=== PATIENT | female | born 1950 | race Caucasian/White ===

== ENCOUNTER 2019-08-01 09:59 | Outpatient (CLI) | payer MEDICARE, MEDICAID, SELFPAY ==
--- NOTE | 2019-08-01 11:02 | MM_ITS ---
WS: [id number] DIAGNOSTIC BILATERAL DIGITAL MAMMOGRAM WITH CAD HISTORY: HX OF BREAST CA COMPARISON: 05/28/2018 and 02/26/2015 TECHNIQUE: Bilateral craniocaudad, mediolateral oblique, and mediolateral views are submitted. Comput er aided detection utilized. Breast composition: Postsurgical and posttreatment changes in the RIGHT breast. Significant volume lo ss in the RIGHT breast. There are extensive benign calcifications noted bilaterally. No suspicious ma ss. No clustering or development of pleomorphic calcifications. MM/[place] [id number] IMPRESSION: BI-RADS: 2-Benign FOLLOW UP: 1 Year Follow-up
== END 2019-08-01 10:00 | disposition home or self-care (01) ==
LOC: RADSHAW 10:05
PROVIDERS: Family Provider Internal Medicine; PCP Internal Medicine; Visit Provider Internal Medicine
DX: Z85.3 Personal history of malignant neoplasm of breast (principal)
CPT/HCPCS: 77066

== ENCOUNTER 2019-09-13 11:53 | Inpatient (IN) | payer MEDICARE, MEDICAID, SELFPAY ==
[2019-09-13] VITALS (37 sets, daily range): BP systolic 130–191; BP diastolic 65–129; PULSE 82–135; RESP 13–27; TEMP 36.7–39.4; O2SAT 91–100; BMI 32.3
--- NOTE | 2019-09-13 11:59 | W.ED.ABDPA2 ---
HPI - Abdominal Pain General: Stated Complaint: VOMITING, PAIN Time Seen by Provider: 09/13/19 11:59 Coding Level of Care Code ED Machine Stemmer for Alexi Hernandez
--- NOTE | 2019-09-13 12:10 | W.ED.AMS ---
HPI - Altered Mental Status General: Chief Complaint: Altered Mental Status Stated Complaint: VOMITING, PAIN Time Seen by Provider: 09/13/19 11:59 History of Present Illness: HPI narrative: pts family state the pt has been having problems with confusion since March, It has gotten much worse over the past few days. SHe has had vomiting. fwver of 103. Pt is unable to give answers. She is awake but groaning and nonverbal. Unsure of her baseline. Pt hasnt been taking her meds, unknonwn for how long MD complaint: altered mental status and confusion Onset (ago): month(s) (6) Timing confirmed by: family member Severity: severe Consistency of symptoms: Getting Worse Context: recent fever, diabetes and cancer Review of Systems General: Reports: ROS unobtainable due to mental status Const: Reports: fever, chills and fatigue ENMT: Reports: other (dry mucus membranes) GI: Reports: abdominal pain, nausea and vomiting Skin/Breast: Reports: rash Neuro: Reports: weakness in extremities PFSH ED PFSH: Medical History (Updated 09/13/19 @ 16:23 by Cecile Rosario MD) CAD (coronary artery disease) Chronic diastolic CHF (congestive heart failure) CKD (chronic kidney disease) stage 2, GFR 60-89 ml/min COPD (chronic obstructive pulmonary disease) Diabetes mellitus type 2 in obese HTN (hypertension) Hyperlipidemia Infiltrating ductal carcinoma of right breast s/p chemotherapy and adjuvant hormonal therapy x 4 yrs with Arimidex Surgical History (Updated 09/13/19 @ 16:23 by Cecile Rosario MD) H/O hernia repair H/O: hysterectomy History of breast lump/mass excision R History of cholecystectomy History of coronary artery stent placement History of salpingo-oophorectomy R Hx of tonsillectomy Family History (Updated 09/13/19 @ 16:24 by Cecile Rosario MD) Father Cancer colon cancer CAD (coronary artery disease) Brother CAD (coronary artery disease) Social History Smoking and tobacco status: unknown if ever smoked Physical Exam Const: COMMON NORMALS: well nourished; negative for oriented x3 EXAM LIMITATIONS: altered mental status GENERAL APPEARANCE: in distress (moans and moving all around) NUTRITIONAL APPEARANCE: obese ORIENTATION/CONSCIOUSNESS: Yes awake Neck/C-Spine: COMMON NORMALS: full ROM, no lymphadenopathy, supple and no meningeal signs GENERAL: Yes normal visual inspection CERVICAL SPINE: Yes cervical ROM normal Chest: BREAST/AXILLA PALPATION: Yes other (scar just superiot to nipple) Resp: COMMON NORMALS: normal respiratory effort, no retractions, no use of accessory muscles and clear to auscultation bilaterally AUSCULTATION: clear to auscultation bilaterally Cardio: COMMON NORMALS: regular rhythm and no murmurs; negative for regular rate RATE: abnormal rate and tachycardic RHYTHM: regular rhythm GI: COMMON NORMALS: soft to palpation and non-tender INSPECTION: Yes normal to inspection AUSCULTATION: Yes hyperactive bowel sounds PALPATION: Yes soft and No tender RECTAL EXAM: deferred : COMMON NORMALS: Yes no CVA tenderness BLADDER/KIDNEY EXAM: Yes no CVA tenderness Back/Pelvis: COMMON NORMALS: no CVA tenderness and thoracic and lumbar spine normal to inspection Extremity: COMMON NORMALS: normal to inspection GENERAL: Yes normal exam except as noted Neuro: COMMON NORMALS: negative for oriented x3 MENINGEAL SIGNS: Yes no meningeal signs Skin: COMMON NORMALS: no rashes or lesions noted (petechil rash right upper extrem from elbow down) GENERAL SKIN EXAM: no rashes or lesions noted (petechil rash right upper extrem from elbow down) LESIONS: no lesions Course Vital Signs: Vital signs: Vital Signs Temperature 101 F H 09/13/19 14:07 Pulse Rate 116 H 09/13/19 15:10 Respiratory Rate 20 H 09/13/19 15:10 Blood Pressure 179/89 09/13/19 15:10 Pulse Oximetry 96 09/13/19 15:10 MDM - Altered Mental Status MDM Narrative: Medical decision making narrative: pt is confused and doesnt know why she is here, she was trying to get out of bed during exam, her hr keep jumpin to 150's I will get an ecg now to see what it is and i am testing her for covid as her neutrophills to lymphocytes ratio is massive 1330: pts hr went from 117 to 150's ecg whows sinus tachy possible a flutter, I Will try somoe cardizem, and more tyl as she is febrile and more iv fluids. Pt will need to be admitted for acute sepsis, I am waiting for flu swabs 1405 I was going to give pt zosyn however she is allergic to many things, I have ordered vanc and aztreonam as she is allergic to almost everything, Dr Serrano agreed Lab Data: Attestation: I reviewed the patient's lab results. Labs: Lab Results 09/13/19 09/13/19 09/13/19 Range/Units 12:08 12:25 12:25 WBC 14.3 H (4.0-10.0) 10^3/ uL RBC 4.86 (4.1-5.3) 10^6/u L Hgb 12.8 (11.5-15.3) g/dL Hct 41.8 (37.0-47.0) % MCV 86.0 (81-99) fL MCH 26.3 L (28.0-34.0) pg MCHC 30.6 (30.0-36.0) g/dL RDW 14.6 (12.1-15.1) % Plt Count 433 H (130-400) 10^3/c mm MPV 10.5 H (7.4-10.4) fL Neut % (Auto) 93.5 % Lymph % (Auto) 4.0 % [place] % (Auto) 1.9 % Eos % (Auto) 0.0 % Baso % (Auto) 0.2 % Neut # (Auto) 13.4 H (1.8-7.7) 10^3/u L Lymph # (Auto) 0.6 L (0.8-4.8) 10^3/u L [place] # (Auto) 0.3 (0.2-0.9) 10^3/u L Eos # (Auto) 0.0 (0.0-0.8) 10^3/u L Baso # (Auto) 0.0 (0.0-0.1) 10^3/u L Nucleated RBC % (a uto) 0 % Nucleated RBCs # 0.0 /100WBC Sodium 139 (136-145) mmol/L Potassium 3.6 (3.5-5.1) mmol/L Chloride 96 L (98-107) mmol/L Carbon Dioxide 21 L (22-29) mmol/L Anion Gap 25.6 H (5-19) BUN 10 (8-23) mg/dL Creatinine 1.0 H (0.5-0.9) mg/dL GFR Calculation 55.0 L (90-130) mL/min Glucose 362 H (65-115) mg/dL POC Glucose 313 (70-110) mg/dL Calculated Osmolal ity 299 H (285-295) mOsm/k g Lactate (0.5-2.2) mmol/L Calcium 9.8 (8.5-10.5) mg/dL Total Bilirubin 0.5 (0.15-1.2) mg/dL AST 32 (0-32) U/L ALT 30 (0-33) U/L Alkaline Phosphata se 132 H (35-105) IU/L Troponin T Baselin e (0-10) ng/mL Total Protein 7.3 (6.6-8.7) g/dL Albumin 4.4 (3.5-5.2) g/dL Globulin 2.9 (1.3-4.6) g/dL Urine Color (Yellow) Urine Appearance (CLEAR) Urine pH (5-7) Ur Specific Gravit y (1.005-1.030) Urine Protein (Negative) Urine Glucose (UA) (Normal) Urine Ketones (Negative) Urine Blood (Negative) Urine Nitrate (Negative) Urine Bilirubin (NEGATIVE) Urine Urobilinogen (Negative) mg/dL Ur Leukocyte Cassie ase (Negative) Urine RBC (0-2) /hpf Urine WBC (0-5) /hpf Ur Squamous Epith Cells (0-5) Urine Bacteria (NONE) Influenza Type A A g (Negative) Influenza Type B A g (Negative) 09/13/19 09/13/19 09/13/19 Range/Units 12:39 13:24 13:43 WBC (4.0-10.0) 10^3/ uL RBC (4.1-5.3) 10^6/u L Hgb (11.5-15.3) g/dL Hct (37.0-47.0) % MCV (81-99) fL MCH (28.0-34.0) pg MCHC (30.0-36.0) g/dL RDW (12.1-15.1) % Plt Count (130-400) 10^3/c mm MPV (7.4-10.4) fL Neut % (Auto) % Lymph % (Auto) % [place] % (Auto) % Eos % (Auto) % Baso % (Auto) % Neut # (Auto) (1.8-7.7) 10^3/u L Lymph # (Auto) (0.8-4.8) 10^3/u L [place] # (Auto) (0.2-0.9) 10^3/u L Eos # (Auto) (0.0-0.8) 10^3/u L Baso # (Auto) (0.0-0.1) 10^3/u L Nucleated RBC % (a uto) % Nucleated RBCs # /100WBC Sodium (136-145) mmol/L Potassium (3.5-5.1) mmol/L Chloride (98-107) mmol/L Carbon Dioxide (22-29) mmol/L Anion Gap (5-19) BUN (8-23) mg/dL Creatinine (0.5-0.9) mg/dL GFR Calculation (90-130) mL/min Glucose (65-115) mg/dL POC Glucose (70-110) mg/dL Calculated Osmolal ity (285-295) mOsm/k g Lactate 3.5 H (0.5-2.2) mmol/L Calcium (8.5-10.5) mg/dL Total Bilirubin (0.15-1.2) mg/dL AST (0-32) U/L ALT (0-33) U/L Alkaline Phosphata se (35-105) IU/L Troponin T Baselin e 16 H (0-10) ng/mL Total Protein (6.6-8.7) g/dL Albumin (3.5-5.2) g/dL Globulin (1.3-4.6) g/dL Urine Color (Yellow) Urine Appearance (CLEAR) Urine pH (5-7) Ur Specific Gravit y (1.005-1.030) Urine Protein (Negative) Urine Glucose (UA) (Normal) Urine Ketones (Negative) Urine Blood (Negative) Urine Nitrate (Negative) Urine Bilirubin (NEGATIVE) Urine Urobilinogen (Negative) mg/dL Ur Leukocyte Cassie ase (Negative) Urine RBC (0-2) /hpf Urine WBC (0-5) /hpf Ur Squamous Epith Cells (0-5) Urine Bacteria (NONE) Influenza Type A A g Negative (Negative) Influenza Type B A g Negative (Negative) 09/13/19 Range/Units 13:43 WBC (4.0-10.0) 10^3/ uL RBC (4.1-5.3) 10^6/u L Hgb (11.5-15.3) g/dL Hct (37.0-47.0) % MCV (81-99) fL MCH (28.0-34.0) pg MCHC (30.0-36.0) g/dL RDW (12.1-15.1) % Plt Count (130-400) 10^3/c mm MPV (7.4-10.4) fL Neut % (Auto) % Lymph % (Auto) % [place] % (Auto) % Eos % (Auto) % Baso % (Auto) % Neut # (Auto) (1.8-7.7) 10^3/u L Lymph # (Auto) (0.8-4.8) 10^3/u L [place] # (Auto) (0.2-0.9) 10^3/u L Eos # (Auto) (0.0-0.8) 10^3/u L Baso # (Auto) (0.0-0.1) 10^3/u L Nucleated RBC % (a uto) % Nucleated RBCs # /100WBC Sodium (136-145) mmol/L Potassium (3.5-5.1) mmol/L Chloride (98-107) mmol/L Carbon Dioxide (22-29) mmol/L Anion Gap (5-19) BUN (8-23) mg/dL Creatinine (0.5-0.9) mg/dL GFR Calculation (90-130) mL/min Glucose (65-115) mg/dL POC Glucose (70-110) mg/dL Calculated Osmolal ity (285-295) mOsm/k g Lactate (0.5-2.2) mmol/L Calcium (8.5-10.5) mg/dL Total Bilirubin (0.15-1.2) mg/dL AST (0-32) U/L ALT (0-33) U/L Alkaline Phosphata se (35-105) IU/L Troponin T Baselin e (0-10) ng/mL Total Protein (6.6-8.7) g/dL Albumin (3.5-5.2) g/dL Globulin (1.3-4.6) g/dL Urine Color Yellow (Yellow) Urine Appearance Clear (CLEAR) Urine pH 6.5 (5-7) Ur Specific Gravit y 1.015 (1.005-1.030) Urine Protein 2+ H (Negative) Urine Glucose (UA) 4+ H (Normal) Urine Ketones 1+ H (Negative) Urine Blood 2+ H (Negative) Urine Nitrate Negative (Negative) Urine Bilirubin Neg (NEGATIVE) Urine Urobilinogen Norm (Negative) mg/dL Ur Leukocyte Cassie ase Negative (Negative) Urine RBC 5-10 H (0-2) /hpf Urine WBC 0-4 H (0-5) /hpf Ur Squamous Epith Cells 0-4 H (0-5) Urine Bacteria 1+ H (NONE) Influenza Type A A g (Negative) Influenza Type B A g (Negative) Imaging Data^: CXR: Radiologist's impression: Signed Patient: Araceli Duke #: [id number] : 1950cct#:[id number] Age/Sex: 69 / FADM Date: 09/13/19 Loc: ERRoom/Bed: Attending Dr: Ordering Provider/Ordering MD: Celeste Dixon DO Date of Service: 09/13/19 Procedure(s): XR chest 1V portable [id number] Accession Number(s): [id number] Report Number: [id number] WS: [id number] PORTABLE CHEST HISTORY: pneumonia COMPARISON: 11/07/2016 Scattered granulomata. No pneumonia. No pleural effusion. No pleural effusion or pneumothorax. Cardiac size: Normal. Mediastinum/Aorta: Normal mediastinum. Prior anterior cervical fusion. Degenerative changes at the glenohumeral joints and AC joints. XR/XR chest 1V portable [id number] IMPRESSION: Prior granulomatous disease. No pneumonia. CT Head: Radiologist's impression: CT Scan Report Signed Patient: Araceli Duke #: [id number] : 1950cct#:[id number] Age/Sex: 69 / FADM Date: 09/13/19 Loc: ICURoom/Bed: [place] [address]: Cecile Rosario MD Ordering Provider/Ordering MD: Celeste Dixon DO Date of Service: 09/13/19 Procedure(s): CT head wo con* [id number] Accession Number(s): [id number] Report Number: [id number] WS: [id number] CT HEAD NONCONTRAST HISTORY: mental status change TECHNIQUE: Contiguous axial imaging performed through the brain in 2.5 mm imaging. Bone and soft tissue windows. Sagittal and coronal reformats reviewed. All CT scans at [facility] use at least one of these dose optimization techniques: automated exposure control; mA and/or kV adjustment per patient size (includes targeted exams where dose is matched to clinical indication); or iterative reconstruction. DLP: 456.77 mGy.cm COMPARISON: 11/07/2016 No acute intracranial hemorrhage, midline shift or mass effect. Mild atrophy. Significant progression of decreased attenuation throughout the white matter since the prior study. There is no loss of the lawson-white matter differentiation. Large amount of artifact in the posterior fossa. Ventricles: Normal size with no hydrocephalus. No inferior displacement of cerebellar tonsils. Paranasal sinuses: Near complete opacification of the RIGHT sphenoid sinus. Mastoid air cells: Well pneumatized. Calvarium and scalp: Hyperostosis frontalis interna. Limited evaluation secondary to motion. CT/CT head wo con* [id number] IMPRESSION: 1. Study is limited by motion. 2. No acute intracranial hemorrhage. 3. Significant progression of white matter disease since 11/07/2016. May be related to ischemia or hypertension. EKG Data^: EKG 1: Attestation: I personally reviewed and interpreted this EKG as follows: EKG interpretation date: 09/13/19 EKG interpretation time: 12:39 Computer generated interpretation: sinus tachy rate 117, LAD, LVH nonspec st changes EKG 2: Attestation: I personally reviewed and interpreted this EKG as follows: EKG interpretation date: 09/13/19 EKG interpretation time: 13:31 Prior EKG tracings: available for review Interpretation: sinus tach possible a flutter with rate 150, ant septal q waves, LAD, nonspec st changes Discharge Plan Discharge Patient Disposition: Admitted As Inpatient Admit Provider: Cecile Rosario Clinical Impression: Atrial tachycardia Altered mental status Qualifiers: Altered mental status type: disorientation Qualified Code(s): R41.0 - Disorientation, unspecified Sepsis Qualifiers: Sepsis type: sepsis due to unspecified organism Sepsis acute organ dysfunction status: with acute organ dysfunction Severe sepsis acute organ dysfunction type: encephalopathy Severe sepsis shock status: without septic shock Qualified Code(s): A41.9 - Sepsis, unspecified organism Condition: Stable Referrals: Jake Kilpatrick DO [Primary Care Provider] - Coding Level of Care Code ED Integrative Medicine Physician for Chg Fwd Exam Comprehensive
[2019-09-13 12:12] LABS: Glucose Point of Care 313 mg/dL (70-110)
--- NOTE | 2019-09-13 12:18 | CT_ITS ---
WS: [id number] CT HEAD NONCONTRAST HISTORY: mental status change TECHNIQUE: Contiguous axial imaging performed through the brain in 2.5 mm imaging. Bone and soft tiss ue windows. Sagittal and coronal reformats reviewed. All CT scans at [facility] use at ast one of these dose optimization techniques: automated exposure control; mA and/or kV adjustment pe r patient size (includes targeted exams where dose is matched to clinical indication); or iterative r econstruction. DLP: 456.77 mGy.cm COMPARISON: 11/07/2016 No acute intracranial hemorrhage, midline shift or mass effect. Mild atrophy. Significant progression of decreased attenuation throughout the white matter since the prior study. There is no loss of the lawson-white matter differentiation. Large amount of artifact in t he posterior fossa. Ventricles: Normal size with no hydrocephalus. No inferior displacement of cerebellar tonsils. Paranasal sinuses: Near complete opacification of the RIGHT sphenoid sinus. Mastoid air cells: Well pneumatized. Calvarium and scalp: Hyperostosis frontalis interna. Limited evaluation secondary to motion. CT/CT head wo con* [id number] IMPRESSION: 1. Study is limited by motion. 2. No acute intracranial hemorrhage. 3. Significant progression of white matter disease since 11/07/2016. May be rela jovan to ischemia or hypertension.
--- NOTE | 2019-09-13 12:18 | CT_ITS ---
WS: [id number] CT ABDOMEN AND PELVIS WITH CONTRAST HISTORY: Abdominal pain with fever. Altered mental status. TECHNIQUE: Imaging performed of the abdomen and pelvis with IV contrast. Single phase imaging of the abdomen. Coronal and sagittal reformats are submitted. All CT scans at [facility] use at least one of these dose optimization techniques: automated exposure control; mA and/or kV adjustment per patient size (includes targeted exams where dose is matched to clinical indication); or iterativ e reconstruction. IV CONTRAST: Visipaque 320; 95 mL IV. Oral contrast: No DLP: 1464.82 mGy.cm COMPARISON: None available. Lower thorax: Benign granulomata at the lung bases. No pneumonia. Heart is normal size. Small hiatal hernia. Liver/biliary system: Mild hepatic steatosis. No bile duct dilatation or mass. Gallbladder: Gallbladder is not identified. Pancreas: Normal. Spleen: Numerous granulomata. Normal size. Adrenal glands: Normal. Right kidney: Moderate perinephric stranding. Cortical cyst in the mid kidney. The largest measures 1 .7 cm. No obstruction. There are nonobstructing calcifications in the renal pelvis. Left kidney: Mild perinephric stranding. Focal area of cortical thinning in the posterior upper pole. There a few scattered hypodensities which are too small to characterize. Additional nonobstructing c alcifications. No hydronephrosis. Aorta: Moderate atherosclerosis with no aneurysm. Lymphadenopathy: None. Free fluid: None. GI tract: The appendix may be. The appendix is not definitely identified. There is mucosal edema in t he RIGHT colon through the transverse colon. Mild shagginess and irregular appearance of the colon. S imilar appearance the descending colon. Towards the sigmoid there is mild wall thickening. There is s cattered diverticula. There is ill-defined fluid collection measuring 2.2 x 1.6 cm inseparable from t he lateral sigmoid colon. There are several adjacent diverticula with mild wall thickening. No free a ir. Abdominal wall: Unremarkable abdominal wall. No hernia. Pelvis: Urinary bladder is nondistended due to Bustillos catheter. Bones: Sclerotic lytic changes and T10 and T11. Probably due to hemangiomas. No destructive process. The cor den of the vertebral bodies remains intact. CT/CT abdomen pelvis w con* [id number] IMPRESSION: 1. Mild mucosal edema and thickening of the colon. Favor mild colitis. There i s a small fluid collection inseparable from the sigmoid colon measuring 2.2 x 1 .6 cm. This is either a small ovarian remnant or small diverticular abscess. No t a lot of adjacent inflammation and there is no enhancement of the wall. Favor this may be part of an atrophic ovary. I doubt this would be accessible for ev aluation by ultrasound. Follow-up CT evaluation may be the most helpful evaluat ion. 2. Diverticulosis without focal diverticulitis. 3. Urinary bladder is nondistended and contains a Bustillos catheter. 4. Mild perinephric stranding around each kidney. Correlate for possible urina ry tract infection. 5. Small hiatal hernia. 6. Gallbladder is not identified. Uterus is not identified either.
--- NOTE | 2019-09-13 12:18 | XR_ITS ---
WS: [id number] PORTABLE CHEST HISTORY: pneumonia COMPARISON: 11/07/2016 Scattered granulomata. No pneumonia. No pleural effusion. No pleural effusion or pneumothorax. Cardiac size: Normal. Mediastinum/Aorta: Normal mediastinum. Prior anterior cervical fusion. Degenerative changes at the glenohumeral joints and AC joints. XR/XR chest 1V portable [id number] IMPRESSION: Prior granulomatous disease. No pneumonia.
--- NOTE | 2019-09-13 12:19 | ECG_ITS ---
Measurements Intervals [place] Rate: 117 P: 41 [place]: 171 QRS: -58 QRSD: 118 T: 64 QT: 342 QTc: 478 SINUS TACHYCARDIA LEFT AXIS DEVIATION [QRS AXIS < -30] LEFT VENTRICULAR HYPERTROPHY AND ST-T CHANGE ANTEROSEPTAL MYOCARDIAL INFARCTION [40+ ms Q WAVE IN V1-V4], OF INDETERMINATE AGE Compared to ECG 11/07/2016 17:57:55 Left ventricular hypertrophy now present ST (T wave) deviation now present Myocardial infarct finding no longer present Electronically Signed On 09-13-2019 19:20:23 CDT by Beverley Lopez M.D. [id number] gagnon
[2019-09-13 12:57] LABS: Basophils % 0.2 %; Hematocrit 41.8 % (37.0-47.0); Hemoglobin 12.8 g/dL (11.5-15.3); Lymphocytes # 0.6 10^3/uL (0.8-4.8); Mean Corpuscular HGB Conc 30.6 g/dL (30.0-36.0); Mean Corpuscular Hemoglobin 26.3 pg (28.0-34.0); Mean Platelet Volume 10.5 fL (7.4-10.4); Monocytes # 0.3 10^3/uL (0.2-0.9); Monocytes % 1.9 %; Neutrophils # 13.4 10^3/uL (1.8-7.7); Neutrophils % 93.5 %; Nucleated Red Blood Cells % 0 %; Platelet Count 433 10^3/cmm (130-400); Red Blood Count 4.86 10^6/uL (4.1-5.3); Red Cell Distribution Width 14.6 % (12.1-15.1); White Blood Count 14.3 10^3/uL (4.0-10.0)
[2019-09-13] MEDS: sodium chloride 0.9% 1,000 ML 999 ML IV (13:00)
[2019-09-13 13:16] LABS: Lactate (Lactic Acid level) 3.5 mmol/L (0.5-2.2)
[2019-09-13 13:22] LABS: Alanine Aminotransferase 30 U/L (0-33); Albumin Level 4.4 g/dL (3.5-5.2); Alkaline Phosphatase 132 IU/L (35-105); Anion Gap 25.6 (5-19); Blood Urea Nitrogen 10 mg/dL (8-23); Calcium 9.8 mg/dL (8.5-10.5); Carbon Dioxide 21 mmol/L (22-29); Chloride 96 mmol/L (98-107); Globulin 2.9 g/dL (1.3-4.6); Glucose 362 mg/dL (65-115); Osmolality Calculated 299 mOsm/kg (285-295); Potassium 3.6 mmol/L (3.5-5.1); Sodium 139 mmol/L (136-145); Total Bilirubin 0.5 mg/dL (0.15-1.2); Total Protein 7.3 g/dL (6.6-8.7)
[2019-09-13 13:38] LABS: Aspartate Amino Transferase 32 U/L (0-32)
[2019-09-13 13:47] LABS: Troponin(5th) Baseline 16 ng/mL (0-10)
[2019-09-13] MEDS: acetaminophen 650 mg Supp PR ×2 (14:00→20:25)
[2019-09-13 14:12] LABS: Add Urine Microscopic? YES; Bilirubin Urine Neg (NEGATIVE); Blood Urine 2+ (Negative); Glucose Urine UA 4+ (Normal); Ketones Urine 1+ (Negative); Leukocyte Esterase Urine Negative (Negative); Nitrate Urine Negative (Negative); Protein Urine 2+ (Negative); Specific Gravity, Urine 1.015 (1.005-1.030); Urine Appearance Clear (CLEAR); Urine Color Yellow (Yellow); Urobilinogen Urine Norm (Negative); pH Urine 6.5 (5-7)
[2019-09-13 14:16] LABS: Add Urine Culture? Yes; Bacteria Urine 1+; Squamous Epithelial Cell Urine 0-4 (0-5); WBC Urine 0-4 /hpf (0-5)
--- NOTE | 2019-09-13 14:19 | ECG_ITS ---
Measurements Intervals [place] Rate: 150 P: 240 [place]: 101 QRS: -57 QRSD: 118 T: 35 QT: 296 QTc: 468 SINUS TACHYCARDIA WITH SHORT [place] INTERVAL, POSSIBLE ATRIAL FLUTTER LEFT AXIS DEVIATION [QRS AXIS < -30] PATTERN CONSISTENT WITH PULMONARY DISEASE Compared to ECG 11/07/2016 17:57:55 No significant changes Electronically Signed On 09-14-2019 19:08:12 CDT by Lory Taylor M.D. [email or web address] f
[2019-09-13 14:28] LABS: Influenza A by IFA Negative (Negative)
[2019-09-13 14:29] LABS: Influenza B by IFA Negative (Negative)
[2019-09-13] MEDS: aztreonam 2,000 MG in sodium chloride 0.9% (plus) 100 ML 200 MG IV ×2 (14:45→23:10)
--- NOTE | 2019-09-13 14:50 | PC.NURSE ---
This Rn at bedside with this pt throughout stay so far. Pt continues to be restless and is unable to sit still. Constantly attempting to get out of bed. Lines have been changed as pt urinated and saturated linens. Will continue to monitor closely.
[2019-09-13 15:39] LABS: Troponin 5 2HR 20.49 ng/mL (0-10); Troponin 5 2HR Delta 4.49 ABS# (0-10)
[2019-09-13] MEDS: vancomycin 1,000 MG in sodium chloride 0.9% 250 ML 250 MG IV (15:39)
--- NOTE | 2019-09-13 15:43 | PM.HP ---
Providers/Chief Complaint Admitting Physician: Cecile Rosario MD Primary Care Provider: Jake Kilpatrick DO Chief Complaint: Increased confusion, poor intake History of Present Illness Araceli Duke is a 69 year old female with PMHx of Right breast infiltrating ductal carcinoma status post chemotherapy and adjuvant hormonal therapy (has chronic R lymphedema), HTN, Hyperlipidemia, CAD s/p LAD stenting, COPD, CKD stage II, NIDDM type II; presents from home via ambulance for evaluation of ongoing and progressive altered mental status as well as most recently abdominal discomfort, nausea/vomiting, diarrhea and poor oral intake. Patient is encountered in the ER, is alert but quite disoriented and unable to provide any history. Collateral information obtained from thorough review of medical record as well as a verbal conversation with patient's and daughter over the phone. It seems that sometime in March 2019, patient whom had began to display some issues with forgetfulness and memory loss, seemed to progressively get worse with some days acting normal than others where she would be completely unaware of what is going on with periods of agitation, increased forgetfulness, agitation and generally incapable of taking care of herself. Daughter and alternate providing 24/7 supervision at home. Patient is able to ambulate independently within the home but has gradually lost interest in and out of home activity, had progressively poor oral intake had increasing episodes of urinary and bowel incontinence. She has complained of sciatic nerve pain to her family and as of yesterday was started on [place] by Dr. Kilpatrick of which she has taken 2 doses. Family states that she last took her medications yesterday the patient is quite forgetful and does not seem to consistently take her medications as she should. She is a former smoker, quit 30 years ago, family denies any alcohol or illicit drug use. She follows up with Dr. Garner as her primary adobe maker. Family contacted [facility] [place] to get patient transitioned to fpc earlier today as they are struggling to provide adequate care for her at home. They were advised to have patient be evaluated in the ER given her symptoms and consider placement after that. Patient moans intermittently and responds to painful stimulation including inflation of blood pressure cuff is otherwise unable to follow commands. She was febrile with a T-max of 103F and has received a total of 1000 mg of Tylenol GA with most recent temperature being 101 F. She is quite hypertensive with systolic blood pressure up in the 1 80-1 90 range, tachycardic with intermittent spikes in her heart rate to 1 70-1 80 though she does not sustain this for longer than a few seconds at a time. She is currently on room air and saturating at 96%. She has received a dose of Cardizem with EKG showing sinus tachycardia versus possible a flutter. She has a leukocytosis with a white count of 14.3 with neutrophilic predominance, slight elevation in platelet count at 433, elevated anion gap at 25.6, creatinine of 1.0, glucose of 362, lactate of 3.5, troponins with no significant delta over 2 hours, UA showing ketonuria, proteinuria and bacteria, influenza negative. Chest x-ray is unremarkable. CT head is also unremarkable for any acute findings. CT scan of the abdomen and pelvis shows findings consistent with mild colitis, mild bilateral perinephric stranding and diverticulosis. She has received a dose of vancomycin and aztreonam per my request, aztreonam was chosen given patient's allergy profile. COVID-19 testing has also been sent. Patient will be admitted to ICU given sepsis, significant altered mental status, and low threshold for decompensation. I had an extensive discussion with patient's and daughter including current restricted visiting policy and availability of contacting nursing staff over the phone for updates as needed. Confirmed that family would like to continue to pursue fpc placement with preference for [facility] care. Patient is been admitted for further IV antibiotics, IV fluid hydration. Review of Systems General: Reports: ROS unobtainable due to mental status Medications/Allergies Home Medications Medication Instructions Recorded Confirmed Last Taken Type amlodipine 2.5 mg PO DAILY 09/13/19 09/13/19 Unknown History atenolol 50 mg PO DAILY 09/13/19 09/13/19 Unknown History citalopram 40 mg PO DAILY 09/13/19 09/13/19 Unknown History clopidogrel 75 mg PO DAILY 09/13/19 09/13/19 Unknown History hydrocodone-acetaminophen 1 tab PO TID PRN 09/13/19 09/13/19 Unknown History metformin 1,000 mg PO BID 09/13/19 09/13/19 Unknown History ranitidine HCl 300 mg PO BID 09/13/19 09/13/19 Unknown History tizanidine 4 mg PO TID PRN 09/13/19 09/13/19 Unknown History Allergies Allergy/AdvReac Type Severity Reaction Status Date / Time acetanilide Allergy ALGY-Hives Verified 09/13/19 12:19 amoxicillin Allergy ALGY-Hives Verified 09/13/19 12:19 ciprofloxacin Allergy ALGY-Hives Verified 09/13/19 12:19 codeine Allergy ALGY-Hives Verified 09/13/19 12:19 doxycycline Allergy ALGY-Hives Verified 09/13/19 12:19 Penicillins Allergy ALGY-Hives Verified 09/13/19 12:19 propoxyphene Allergy ALGY-Hives Verified 09/13/19 12:19 Sulfa (Sulfonamide Allergy ALGY-Hives Verified 09/13/19 12:19 Antibiotics) tetracycline Allergy ALGY-Hives Verified 09/13/19 12:19 PFSH Acute PFSH: Medical History (Updated 09/13/19 @ 18:22 by Cecile Rosario MD) CAD (coronary artery disease) Chronic diastolic CHF (congestive heart failure) CKD (chronic kidney disease) stage 2, GFR 60-89 ml/min COPD (chronic obstructive pulmonary disease) Diabetes mellitus type 2 in obese HTN (hypertension) Hyperlipidemia Infiltrating ductal carcinoma of right breast s/p chemotherapy and adjuvant hormonal therapy x 4 yrs with Arimidex Surgical History (Updated 09/13/19 @ 16:23 by Cecile Rosario MD) H/O hernia repair H/O: hysterectomy History of breast lump/mass excision R History of cholecystectomy History of coronary artery stent placement History of salpingo-oophorectomy R Hx of tonsillectomy Family History (Updated 09/13/19 @ 16:24 by Cecile Rosario MD) Father Cancer colon cancer CAD (coronary artery disease) Brother CAD (coronary artery disease) Social History (Updated 09/13/19 @ 16:43 by Cecile Rosario MD) Smoking and tobacco status: former smoker Quit status (tobacco): has quit using tobacco Year quit tobacco: 30 yrs ago Alcohol intake: never Substance/Drug Use: never Household members: spouse and children Marital status: Vitals/I&O/Wt Last Vital Signs Temp 101 F H 09/13/19 14:07 Pulse 116 H 09/13/19 15:10 Resp 20 H 09/13/19 15:10 BP 179/89 09/13/19 15:10 Pulse Ox 96 09/13/19 15:10 09/13/19 09/13/19 09/13/19 06:59 14:59 22:59 Intake Total 100 / 100 Balance 100 / 100 Weight last 48 hrs Weight 72.575 kg Physical Exam Const: COMMON NORMALS: no apparent distress NUTRITIONAL APPEARANCE: obese morbidly obese ORIENTATION/CONSCIOUSNESS: Yes awake and Yes confused HENMT: COMMON NORMALS: normocephalic and head/scalp atraumatic HEAD & SCALP: normocephalic and atraumatic MOUTH: moist mucous membranes abnormal Details: parched Eye: COMMON NORMALS: PERRL, EOMs intact bilaterally and conjunctivae normal CONJUNCTIVA: Yes conjunctivae normal PUPIL: Yes PERRL Neck/C-Spine: COMMON NORMALS: full ROM GENERAL: Yes normal visual inspection and Yes trachea midline Chest: COMMONS NORMALS: inspection of chest normal Resp: COMMON NORMALS: normal respiratory effort, no retractions, no use of accessory muscles and clear to auscultation bilaterally EFFORT & INSPECTION: Yes able to speak in complete sentences, Yes symmetric chest movement and Yes tachypneic AUSCULTATION: clear to auscultation bilaterally Cardio: COMMON NORMALS: S1 normal heart sound, S2 normal heart sound and no murmurs RATE: tachycardic RHYTHM: abnormal rhythm HEART SOUNDS: S1 normal and S2 normal GI: COMMON NORMALS: normal to inspection, nondistended, normoactive bowel sounds and soft to palpation INSPECTION: Yes central obesity PALPATION: Yes soft OTHER: -unable to gauge tenderness but no apparent discomfort on palpation Extremity: COMMON NORMALS: normal to inspection, full ROM, no clubbing, cyanosis or edema and no pedal edema Neuro: COMMON NORMALS: moves all extremities SENSORIUM/ORIENTATION: Yes alert, Yes orientation impaired (moans in response to painful stimulation) and Yes other (unable to follow commands) Psych: ATTENTION/CONCENTRATION: Yes attention grossly impaired and Yes concentration grossly impaired Skin: COMMON NORMALS: no rashes or lesions noted, no jaundice, no petechiae and no mottling GENERAL SKIN EXAM: no rashes or lesions noted Urinary Catheter Management^: [place]: Cath Placed During This Visit: yes Urethral Indwelling: Yes Reason for Continuing Indwelling Catheter: Accurate Measurement of Urinary Output in Critically Ill Patients Urinary Catheter Date of Insertion: 09/13/19 Data : 09/13/19 12:25 09/13/19 12:25 Micro: Microbiology 09/13/19 13:24 Blood Culture - Preliminary Blood SPECIMEN COLLECTED 09/13/19 12:39 Blood Culture - Preliminary Blood SPECIMEN COLLECTED A&P Assessment and plan (1) Altered mental status: -Presented with altered mental status, collateral information obtained from family and thorough review of medical record. Given gradual onset of memory loss, forgetfulness, waxing and waning quality, suspect underlying dementia that has worsened in light of possible infection -Associated sepsis as evidenced by leukocytosis, tachycardia, fever, lactic acidosis -UA positive for bacteria, ketones, protein -Chest x-ray unremarkable -CT abdomen and pelvis reviewed with reported diverticulosis without diverticulitis, mild colitis, mild perinephric stranding around each kidney -CT head negative -Clinically appears dehydrated (ketonuria, lactic acidosis, increased anion gap); IV fluid hydration -f/u blood and urine cx -received dose of Vancomycin and Aztreonam; continue Aztreonam (due to noted allergy profile) and add Flagyl for appropriate anaerobic coverage given evidence of colitis -lactic acidosis-3.5, suspect infection as well as element of dehydration -order stool studies including C.difficile though has not been on recent abx -ammonia-17 -check TSH, vitamin B12, folate -B[place]illos catheter placement for accurate Is & Os -NPO for now -noted hyperglycemia; will check A1c in AM -hypoglycemia precautions particularly as NPO -fall precautions -PT/OT evaluations once able to follow commands -ST evaluation for cognitive testing -will need 1:1 monitoring given high fall risk, likelihood of pulling at IVs, [place] catheter -Ativan PRN if increased agitation Status: Acute Qualifiers: Altered mental status type: disorientation Qualified Code(s): R41.0 - Disorientation, unspecified (2) Sepsis: -as noted above Status: Acute Qualifiers: Sepsis acute organ dysfunction status: with acute organ dysfunction Sepsis type: sepsis due to unspecified organism Severe sepsis acute organ dysfunction type: encephalopathy Severe sepsis shock status: without septic shock Qualified Code(s): A41.9 - Sepsis, unspecified organism; R65.20 - Severe sepsis without septic shock; G93.40 - Encephalopathy, unspecified (3) HTN (hypertension): -has known hx of HTN, presented with hypertensive urgency -per family has not taken meds since yesterday, per med list is on Atenolol 50 mg and Amlodipine 2.5 mg -hydralazine PRN for now until can take PO meds -close monitoring of vital signs -troponins noted with no significant delta Status: Chronic Qualifiers: Hypertension type: essential hypertension Qualified Code(s): I10 - Essential (primary) hypertension (4) Chronic diastolic CHF (congestive heart failure): -has known hx of chronic diastolic CHF, no acute exacerbation currently -Echo (2017): EF=60%, G1DD;repeat ordered given hypertensive urgency and need to reassess EF Status: Acute (5) CKD (chronic kidney disease) stage 2, GFR 60-89 ml/min: -has BRENT on CKD stage 2, baseline Cr wnl -likely secondary to dehydration given poor oral intake, diarrhea, N/V -continue to monitor renal function, avoid nephrotoxins -IVF hydration -noted evidence of bilateral perinephric stranding on imaging -has [place] catheter; monitor urine output Status: Chronic (6) COPD (chronic obstructive pulmonary disease): -has documented hx of COPD, prior smoker, not oxygen dependent -no evidence of acute exacerbation currently -supplemental oxygen as needed -monitor respiratory status Status: Chronic Qualifiers: COPD type: unspecified COPD Qualified Code(s): J44.9 - Chronic obstructive pulmonary disease, unspecified (7) Diabetes mellitus type 2 in obese: -has hx of NIDDM type II -hypoglycemia precautions, accuchecks, ISS -check A1c in AM -noted urine ketones, significant hyperglycemia, increased anion gap though I suspect dehydration to be more of an element here than DKA -when PO appropriate, consistent carb diet Status: Chronic (8) CAD (coronary artery disease): -has prior hx of CAD with stenting of LAD done in 03/2007 -had previously followed up with cardiology Status: Chronic Qualifiers: Coronary Disease-Associated Artery/Lesion type: [place] artery [place] vs. transplanted heart: [place] heart Associated angina: angina presence unspecified Qualified Code(s): I25.10 - Atherosclerotic heart disease of [place] coronary artery without angina pectoris (9) Hyperlipidemia: -lipid panel in AM Status: Chronic Qualifiers: Hyperlipidemia type: unspecified Qualified Code(s): E78.5 - Hyperlipidemia, unspecified Additional A&P Information -Chronic back pain, sciatica; had just been started on [place] -Obesity: BMI-32 kg/m2 -hx of R breast infiltrating ductal carcinoma s/p chemo and adjuvant hormonal therapy (Arimidex) -Tachycardia, ECGs noted; telemetry monitoring, BB PRN -GI ppx with famotidine -DVT ppx with heparin -Dispo: needs NH placement -Code status: FULL code per discussion with family -ICU admission given sepsis, significant altered mental status, low threshold for decompensation Attestations Medical Necessity Statement*: Araceli Duke's hospital stay will require greater than 2 midnights for management of altered mental status, dehydration, colitis, UTI, including IVF hydration, broad spectrum IV antibiotics. Time Spent in Patient Care: Greater than 35 minutes (>than 50% of time spent in counselling and/or direct pt care on unit). Critical Care Time: The high probability of a clinically significant, sudden or life threatening deterioration of the patient's [hemodynamic] system(s) required my full and direct attention, intervention and personal management. The critical care time is as shown. This time is in addition to time spent performing any reported procedures but includes the following: [x] Data and vital sign review and interpretation [x] Patient assessment, examination and intervention [x] Documentation [x] Medication orders and management Critical Care Time (min): 20 Coding Level of Care Code Acute Hem Inspector for Chg Fwd Diagnoses Altered mental status R41.0 Altered mental status type: disorientation Sepsis A41.9; R65.20; G93.40 Sepsis acute organ dysfunction status: with acute organ dysfunction Sepsis type: sepsis due to unspecified organism Severe sepsis acute organ dysfunction type: encephalopathy Severe sepsis shock status: without septic shock HTN (hypertension) I10 Hypertension type: essential hypertension Chronic diastolic CHF (congestive heart failure) I50.32 CKD (chronic kidney disease) stage 2, GFR 60-89 ml/min N18.2 COPD (chronic obstructive pulmonary disease) J44.9 COPD type: unspecified COPD Diabetes mellitus type 2 in obese E11.69; E66.9 CAD (coronary artery disease) I25.10 Coronary Disease-Associated Artery/Lesion type: [place] artery [place] vs. transplanted heart: [place] heart Associated angina: angina presence unspecified Hyperlipidemia E78.5 Hyperlipidemia type: unspecified
[2019-09-13] MEDS: iodixanol 320 mg/mL 100mL Btl IV (16:03)
[2019-09-13 16:04] LABS: Ammonia 17 umol/L (11-51)
[2019-09-13] MEDS: morphine 4 mg/mL SDV 1 mL 2 MG IVP ×2 (17:30→23:11)
[2019-09-13] MEDS: famotidine 20 mg/2 mL INJ IVP (17:30)
[2019-09-13] MEDS: heparin 5,000 unit/mL INJ 1 mL 5000 UNIT SUBCUT (17:30)
[2019-09-13] MEDS: sodium chlor 0.9% + KCl 20 mEq 20 MEQ/1,000 ML BAG 100 MEQ IV (17:30)
[2019-09-13] MEDS: metoprolol tartrate 1 mg/1 mL SDV 5 mL 5 MG IV ×2 (17:30→23:13)
[2019-09-13] MEDS: LORazepam 2 mg/mL INJ 1 mL 1 MG IVP (17:48)
[2019-09-13 18:11] LABS: Glucose Point of Care 264 mg/dL (70-110)
--- NOTE | 2019-09-13 18:19 | ECG_ITS ---
Measurements Intervals [place] Rate: 102 P: 74 WI: 202 QRS: -52 QRSD: 121 T: -2 QT: 367 QTc: 478 SINUS TACHYCARDIA MARKED LEFT AXIS DEVIATION [QRS AXIS < -30] SEPTAL MYOCARDIAL INFARCTION [40+ ms Q WAVE IN V1/V2], OF INDETERMINATE AGE Compared to ECG 11/07/2016 17:57:55 No significant changes Electronically Signed On 09-13-2019 19:39:57 CDT by Bevelrey Lopez M.D. [email or web address]
[2019-09-13] MEDS: metroNIDAZOLE IV 500 MG/100 ML PREMIX 100 MG IV (20:24)
[2019-09-13 20:41] LABS: Troponin 5 6HR 38.28 ng/mL (0-10)
[2019-09-13 20:44] LABS: Troponin 5 6HR Delta 22.28 ng/L (0-12)
[2019-09-13 20:56] LABS: Glucose Point of Care 190 mg/dL (70-110)
--- NOTE | 2019-09-13 21:04 | ECG_ITS ---
Measurements Intervals [place] Rate: 88 P: 64 TX: 194 QRS: -50 QRSD: 132 T: -16 QT: 395 QTc: 480 SINUS RHYTHM MARKED LEFT AXIS DEVIATION [QRS AXIS < -30] INTRAVENTRICULAR CONDUCTION DELAY [130+ ms QRS DURATION] SEPTAL MYOCARDIAL INFARCTION [40+ ms Q WAVE IN V1/V2], PROBABLY OLD Compared to ECG 09/13/2019 17:58:44 Intraventricular conduction delay now present Sinus tachycardia no longer present Myocardial infarct finding still present Electronically Signed On 09-14-2019 19:06:07 CDT by Lory Taylor M.D. [email or web address]
[2019-09-13] MEDS: enoxaparin 80 mg/0.8 mL Syringe 70 MG SUBCUT (23:09)
--- NOTE | 2019-09-13 23:57 | PC.NURSE ---
1930 PATIENT TURNING SELF IN BED, CRIES OUT WHEN BP CUFF GOES OFF, PUSHES NURSE AWAY WHEN OXYGEN PLACED. OXYGEN PLACED AT 2030 SHE DESATURATED TO 89 WITH A GOOD PLETH WHEN UPSET BY BP CUFF. TROPONIN CAME BACK ELEVATED EVEN HIGHER THAN BASELINE TO 38. MADE AWARE AND ECG 12 LEAD DONE . NOTED NO ST ELEVATION BUT MARKED BBB. FAMILY CALLED TO UNIT JUST ECG BEING DONE. INFORMED OF ELEVATED TROP AND THAT ECG IS SUSPICIOUS OF AMI.
[2019-09-14] VITALS (36 sets, daily range): BP systolic 135–200; BP diastolic 63–98; PULSE 75–108; RESP 13–22; TEMP 36.8–37.2; O2SAT 93–100
[2019-09-14 02:56] LABS: Basophils % 0.2 %; Hematocrit 36.2 % (37.0-47.0); Hemoglobin 10.9 g/dL (11.5-15.3); Lymphocytes # 1.3 10^3/uL (0.8-4.8); Lymphocytes % 11.2 %; Mean Corpuscular HGB Conc 30.1 g/dL (30.0-36.0); Mean Corpuscular Hemoglobin 25.8 pg (28.0-34.0); Mean Corpuscular Volume 85.6 fL (81-99); Mean Platelet Volume 9.6 fL (7.4-10.4); Monocytes # 0.9 10^3/uL (0.2-0.9); Monocytes % 7.6 %; Neutrophils # 9.7 10^3/uL (1.8-7.7); Neutrophils % 80.6 %; Nucleated Red Blood Cells % 0 %; Platelet Count 362 10^3/cmm (130-400); Red Blood Count 4.23 10^6/uL (4.1-5.3); Red Cell Distribution Width 14.7 % (12.1-15.1)
[2019-09-14] MEDS: sodium chlor 0.9% + KCl 20 mEq 20 MEQ/1,000 ML BAG 100 MEQ IV ×2 (03:12→15:42)
[2019-09-14] MEDS: ondansetron 2 mg/ML SDV 2 mL 4 MG IVP ×3 (03:12→19:16)
[2019-09-14] MEDS: metroNIDAZOLE IV 500 MG/100 ML PREMIX 100 MG IV ×3 (03:13→17:08)
[2019-09-14] MEDS: famotidine 20 mg/2 mL INJ IVP ×2 (03:14→17:08)
[2019-09-14 03:16] LABS: Troponin T (5th) Once 38 ng/mL (0-10)
[2019-09-14 03:26] LABS: Anion Gap 17.3 (5-19); Blood Urea Nitrogen 10 mg/dL (8-23); Calcium 8.8 mg/dL (8.5-10.5); Carbon Dioxide 23 mmol/L (22-29); Chloride 103 mmol/L (98-107); Glomerular Filtration Rate 62.1 mL/min (90-130); Glucose 157 mg/dL (65-115); Osmolality Calculated 289 mOsm/kg (285-295); Potassium 3.3 mmol/L (3.5-5.1); Sodium 140 mmol/L (136-145); Thyroid Stimulating Hormone 0.55 uIU/mL (0.27-4.20)
[2019-09-14 03:35] LABS: Folate Level 9.8 ng/mL (4.8-37.3)
--- NOTE | 2019-09-14 03:55 | PC.NURSE ---
0200 LABS ATTEMPTED PER MYSELF AND OTHER STAFF NURSE, PODIATRIC FOOT AND ANKLE SPECIALIST HAD TO COME IN AND TRY. LABS TAKEN WITH MUCH DIFFICULTY. 7 STICKS. SHOULD CONSIDER MIDLINE OR PICC PLACEMENT. PATIENT BATHED AND GOWN CHANGED. WHEN LAB DRAWS WERE DONE SHE SAID WHAT DID YOU SAY ? AND WE WERE SURPRISED. SHE FOCUSED AND LOOKED AT ME. SHE COULD SAY SHE WAS IN THE HOSPITAL BUT DID NOT SEEM TO KNOW WHY. SHE DENIED PAIN. THEN SUDDENLY SHE WAS GAGGING AND NAUSEATED. A SMALL AMOUNT OF MUCOUS OR BILE CAME UP. SHE HELD HER OWN BUCKET. ZOFRAN WAS GIVEN AND HER PEPCID A BIT EARLY. SHE SAFELY TOOK A SIP OF WATER ONCE THE NAUSEA HAD PASSED.
[2019-09-14 04:04] LABS: Estmated Average Glucose 157; Hemoglobin A1C 7.1 % (4.0-6.0)
[2019-09-14 04:10] LABS: Chol HDL Ratio 6.67 mg/dL (0.0-4.40); Cholesterol 220 mg/dL (0-200); HDL Cholesterol 33 mg/dL (60-100); LDL Cholesterol Calculated 136 mg/dL (50-129); LDL HDL Ratio 4.12 RATIO (0.00-3.22); Triglycerides 257 mg/dL (0-150)
[2019-09-14 04:24] LABS: Vitamin B12 176 pg/mL (232-1245)
[2019-09-14 05:30] LABS: Glucose Point of Care 160 mg/dL (70-110)
[2019-09-14] MEDS: aztreonam 2,000 MG in sodium chloride 0.9% (plus) 100 ML 200 MG IV ×3 (05:42→23:09)
--- NOTE | 2019-09-14 06:20 | PC.NURSE ---
Patients oxygen removed per patient and her sats have been 91 to 96 in the last hour.She is sitting up in high fowlers position.
[2019-09-14 07:30] LABS: Coronavirus Lab Test PTC SEE COMMENTS
--- NOTE | 2019-09-14 07:56 | PC.OT ---
OT EVALUATION ORDERS RECEIVED. PATIENT IS BEING TESTED FOR COVID; WILL HOLD UNTIL RESULTS ARE AVAILABLE.
--- NOTE | 2019-09-14 09:18 | P.PN_ITS ---
Subjective Subjective: Interval history: Sitter at bedside, has been calm for most of the night and this AM. Received 1 mg of Ativan yesterday afternoon on arrival to ICU and a total of 4 mg of IV morphine. Had 900 mL urine output overnight, has been afebrile since 1900, BP better controlled, HR wnl. AM labs noted including decreased leukocytosis, improved hyperglycemia, mild hypokalemia, troponin elevation with + delta of 22. COVID-19 testing negative, remains on contact isolation precautions due to need to r/o C.difficile. Due to noted NSTEMI, was started on therapeutic Lovenox. Awake, alert, oriented, aware she is in the hospital, easy to engage in conversation. Reports nausea and has had some episodes of NBNB emesis, poor appetite. Denies SOB, chest pain, abdominial pain. No BM yet. Discussed disposition and she does not want SNF, she prefers to return home on discharge. Medications: Reviewed: Yes Medication Review Details: Active Medications Generic Name Dose Route Start Last Admin Trade Name Freq PRN Reason Stop Dose Admin Acetaminophen 650 mg 09/13/19 16:48 09/13/19 20:25 Tylenol OK 650 mg Q6H PRN Administration FEVER Cyanocobalamin 1,000 mcg 09/14/19 09:20 Vitamin B-12 IM DAILY LUIS Dextrose 25 ml 09/13/19 16:48 D50w IVP ONCE PRN hypoglycemia prot ocol Protocol Dextrose 50 ml 09/13/19 16:48 D50w IVP PRN PRN hypoglycemia prot ocol Protocol Enoxaparin Sodium 70 mg 09/13/19 21:15 09/13/19 23:09 Lovenox SUBCUT 70 mg Q12H LUIS Administration Famotidine 20 mg 09/13/19 16:48 09/14/19 03:14 Pepcid Inj IVP 20 mg Q12H LUIS Administration Glucagon 1 mg 09/13/19 16:48 Glucagen IM ONCE PRN Adult Acute Hypog lycemia Prot. Protocol Hydralazine HCl 10 mg 09/13/19 18:09 Apresoline IVP Q4H PRN SYSTOLIC BLOOD OK ESSURE Aztreonam 2,000 mg / Sodium 100 mls @ 200 mls /hr 09/13/19 23:00 09/14/19 05:42 Chloride IV 200 mls/hr Q8H LUIS Administration Protocol Dextrose 500 mls @ 100 mls /hr 09/13/19 16:48 D5w IV ONCE PRN Adult Acute Hypog lycemia Prot Protocol Potassium Chloride /Sodium Chloride 20 meq in 1,000 m ls @ 100 mls/hr 09/13/19 16:48 09/14/19 03:12 Sodium Chlor 0.9 % + Kcl 20 Meq IV 100 mls/hr .Q10H LUIS Administration Metronidazole 500 mg in 100 mls @ 100 mls/hr 09/13/19 18:30 09/14/19 03:13 Flagyl Iv IV 100 mls/hr Q8H LUIS Administration Protocol Insulin Aspart 0 unit 09/13/19 18:00 09/14/19 05:43 Novolog SUBCUT 4 unit WM&BEDTIME LUIS Administration Protocol Lorazepam 1 mg 09/13/19 16:48 09/13/19 17:48 Ativan IVP 1 mg Q6H PRN Administration AGITATION Metoprolol Tartrat e 5 mg 09/13/19 18:09 09/13/19 23:13 Metoprolol Tartr ate IV 5 mg Q4H PRN Administration HEART RATE-HIGH Morphine Sulfate 2 mg 09/13/19 16:48 09/13/19 23:11 Morphine IVP 2 mg Q4H PRN Administration SEVERE PAIN Ondansetron HCl 4 mg 09/13/19 16:48 09/14/19 03:12 Zofran IVP 4 mg Q6H PRN Administration NAUSEA AND VOMITI NG acetanilide Allergy (Verified 09/13/19 12:19) ALGY-Hives amoxicillin Allergy (Verified 09/13/19 12:19) ALGY-Hives ciprofloxacin Allergy (Verified 09/13/19 12:19) ALGY-Hives codeine Allergy (Verified 09/13/19 12:19) ALGY-Hives doxycycline Allergy (Verified 09/13/19 12:19) ALGY-Hives Penicillins Allergy (Verified 09/13/19 12:19) ALGY-Hives propoxyphene Allergy (Verified 09/13/19 12:19) ALGY-Hives Sulfa (Sulfonamide Antibiotics) Allergy (Verified 09/13/19 12:19) ALGY-Hives tetracycline Allergy (Verified 09/13/19 12:19) ALGY-Hives Vitals/I&O/Wt Last Vital Signs Temp 98.4 F 09/14/19 05:36 Pulse 77 09/14/19 05:36 Resp 16 09/14/19 05:36 BP 143/66 09/14/19 05:36 Pulse Ox 96 09/14/19 05:36 09/13/19 09/14/19 09/14/19 22:59 06:59 14:59 Intake Total 200 / 200 1130 / 1330 Output Total 1950 / 1950 300 / 2250 Balance -1750 / -1750 830 / -920 Weight last 48 hrs Weight 72.575 kg Physical Exam Const: COMMON NORMALS: no apparent distress, oriented x3 and alert GENERAL APPEARANCE: cooperative and comfortable NUTRITIONAL APPEARANCE: obese morbidly obese ORIENTATION/CONSCIOUSNESS: Yes awake HENMT: COMMON NORMALS: normocephalic and head/scalp atraumatic HEAD & SCALP: normocephalic and atraumatic MOUTH: moist mucous membranes abnormal Details: parched TEETH & GINGIVA: Yes edentulous Eye: COMMON NORMALS: PERRL, EOMs intact bilaterally and conjunctivae normal CONJUNCTIVA: Yes conjunctivae normal PUPIL: Yes PERRL Neck/C-Spine: COMMON NORMALS: full ROM GENERAL: Yes normal visual inspection and Yes trachea midline Chest: COMMONS NORMALS: inspection of chest normal Resp: COMMON NORMALS: normal respiratory effort, no retractions, no use of accessory muscles and clear to auscultation bilaterally EFFORT & INSPECTION: Yes able to speak in complete sentences, Yes symmetric chest movement and Yes tachypneic AUSCULTATION: clear to auscultation bilaterally Cardio: COMMON NORMALS: S1 normal heart sound, S2 normal heart sound and no murmurs RATE: tachycardic RHYTHM: abnormal rhythm HEART SOUNDS: S1 normal and S2 normal GI: COMMON NORMALS: normal to inspection, nondistended, normoactive bowel sounds and soft to palpation INSPECTION: Yes central obesity PALPATION: Yes soft OTHER: -unable to gauge tenderness but no apparent discomfort on palpation : BLADDER/KIDNEY EXAM: Yes catheter in place Catheter type (Female): urethral Extremity: COMMON NORMALS: normal to inspection, full ROM, no clubbing, cyanosis or edema and no pedal edema Neuro: COMMON NORMALS: oriented x3, moves all extremities, no focal motor deficits and no sensory deficits noted SENSORIUM/ORIENTATION: Yes alert Psych: COMMON NORMALS: mental status grossly normal, thought process normal, cooperative and speech normal SPEECH: Yes normal speech MOOD & AFFECT: Yes flat affect THOUGHT PROCESS: normal thought process ATTENTION/CONCENTRATION: Yes attention grossly impaired and Yes concentration grossly impaired Skin: COMMON NORMALS: no rashes or lesions noted, no jaundice, no petechiae and no mottling GENERAL SKIN EXAM: no rashes or lesions noted Urinary Catheter Management^: Bustillos: Cath Placed During This Visit: yes Urethral Indwelling: Yes Reason for Continuing Indwelling Catheter: Accurate Measurement of Urinary Output in Critically Ill Patients Urinary Catheter Date of Insertion: 09/13/19 Data : 09/14/19 02:50 09/14/19 02:50 Micro: Microbiology 09/13/19 13:43 Urine Culture - Preliminary Urine,Clean Catch 09/13/19 13:24 Blood Culture - Preliminary Blood SPECIMEN COLLECTED 09/13/19 12:39 Blood Culture - Preliminary Blood SPECIMEN COLLECTED A&P Assessment and plan (1) Altered mental status: -Presented with altered mental status, collateral information obtained from family and thorough review of medical record. Given gradual onset of memory loss, forgetfulness, waxing and waning quality, suspect underlying dementia that has worsened in light of possible infection -Associated sepsis as evidenced by leukocytosis, tachycardia, fever, lactic acidosis -UA positive for bacteria, ketones, protein -Chest x-ray unremarkable -CT abdomen and pelvis reviewed with reported diverticulosis without diverticulitis, mild colitis, mild perinephric stranding around each kidney -CT head negative -Clinically appears dehydrated (ketonuria, lactic acidosis, increased anion gap); IV fluid hydration -blood cx: prelim negative -urine cx: prelim negative -on Aztreonam (due to noted allergy profile) and Flagyl for appropriate anaerobic coverage given evidence of colitis -lactic acidosis-3.5, suspect infection as well as element of dehydration -order stool studies including C.difficile though has not been on recent abx -ammonia-17, low normal TSH, low vitamin B12, folate wnl; replace B12 -Bustillos catheter placement for accurate Is & Os -NPO for now -noted hyperglycemia; improved -hypoglycemia precautions particularly as NPO -fall precautions -PT/OT evaluations -ST evaluation for cognitive testing -on 1:1 monitoring given high fall risk, likelihood of pulling at IVs, Bustillos catheter. With improvement in mental status, will d/c -Ativan PRN if increased agitation Status: Acute Qualifiers: Altered mental status type: disorientation Qualified Code(s): R41.0 - Disorientation, unspecified (2) Sepsis: -as noted above Status: Acute Qualifiers: Sepsis acute organ dysfunction status: with acute organ dysfunction Sepsis type: sepsis due to unspecified organism Severe sepsis acute organ dysfunction type: encephalopathy Severe sepsis shock status: without septic shock Qualified Code(s): A41.9 - Sepsis, unspecified organism; R65.20 - Severe sepsis without septic shock; G93.40 - Encephalopathy, unspecified (3) NSTEMI (non-ST elevated myocardial infarction): -troponins noted with + significant delta of 22; will need to discuss further with cardiology as will likely need further w/u -has known CAD hx, prior LAD stenting in 03/2007 -started on therapeutic Lovenox overnight -will start on ASA, statin, oral BB; resume amlodipine -telemetry monitoring -noted lipid panel -Echo pending Status: Acute (4) HTN (hypertension): -has known hx of HTN, presented with hypertensive urgency which has now resolved -per med list is on Atenolol 50 mg and Amlodipine 2.5 mg -hydralazine PRN for now until can take PO meds -close monitoring of vital signs Status: Chronic Qualifiers: Hypertension type: essential hypertension Qualified Code(s): I10 - Essential (primary) hypertension (5) Chronic diastolic CHF (congestive heart failure): -has known hx of chronic diastolic CHF, no acute exacerbation currently -Echo (2017): EF=60%, G1DD; repeat ordered given hypertensive urgency and NSTEMI Status: Acute (6) CKD (chronic kidney disease) stage 2, GFR 60-89 ml/min: -has BRENT on CKD stage 2, baseline Cr wnl -likely secondary to dehydration given poor oral intake, diarrhea, N/V -continue to monitor renal function, avoid nephrotoxins -IVF hydration -noted evidence of bilateral perinephric stranding on imaging -has Bustillos catheter; monitor urine output Status: Chronic (7) COPD (chronic obstructive pulmonary disease): -has documented hx of COPD, prior smoker, not oxygen dependent -no evidence of acute exacerbation currently -supplemental oxygen as needed -continue to monitor respiratory status Status: Chronic Qualifiers: COPD type: unspecified COPD Qualified Code(s): J44.9 - Chronic o bstructive pulmonary disease, unspecified (8) Diabetes mellitus type 2 in obese: -has hx of NIDDM type II -hypoglycemia precautions, accuchecks, ISS -A1c at goal-7.1 -noted urine ketones, significant hyperglycemia, increased anion gap though I suspect dehydration to be more of an element here than DKA -when PO appropriate, consistent carb diet Status: Chronic (9) CAD (coronary artery disease): -has prior hx of CAD with stenting of LAD done in 03/2007 -had previously followed up with cardiology Status: Chronic Qualifiers: Associated angina: angina presence unspecified Coronary Disease- Associated Artery/Lesion type: [place] artery [place] vs. transplanted heart: [place] heart Qualified Code(s): I25.10 - Atherosclerotic heart disease of [place] coronary artery without angina pectoris (10) Hyperlipidemia: -lipid panel noted -start on statin Status: Chronic Qualifiers: Hyperlipidemia type: unspecified Qualified Code(s): E78.5 - Hyperlipidemia, unspecified Additional A&P Information -Chronic back pain, sciatica; had just been started on Bryan by PCP; pain control as needed -Obesity: BMI-32 kg/m2 -hx of R breast infiltrating ductal carcinoma s/p chemo and adjuvant hormonal therapy (Arimidex) -Tachycardia, ECGs noted; telemetry monitoring, BB -Nausea; add reglan, already on zofran -GI ppx with famotidine -DVT ppx not needed as on therapeutic Lovenox -Dispo: has declined SNF placement at this time, seems more lucid today but not enough information in terms of consistency in mental status to determine level of decision making capacity particularly in light of information obtained from family. May need to consider psych eval to determine competency if noted waxing and waning, CM consulted -Code status: FULL code per discussion with family -ICU care given sepsis, significant altered mental status, low threshold for decompensation Attestations Medical Necessity Statement*: Patient requires hospitalization for continued IVF hydration, continued IV antibiotics, pending improvement in mental status. Time Spent in Patient Care: 16 - 35 minutes (>than 50% of time spent in counselling and/or direct pt care on unit) . Coding Level of Care Code Acute Classroom Technology Technician for g Fwd Exam Comprehensive Diagnoses Altered mental status R41.0 Altered mental status type: disorientation Sepsis A41.9; R65.20; G93.40 Sepsis acute organ dysfunction status: with acute organ dysfunction Sepsis type: sepsis due to unspecified organism Severe sepsis acute organ dysfunction type: encephalopathy Severe sepsis shock status: without septic shock NSTEMI (non-ST elevated myocardial infarction) I21.4 HTN (hypertension) I10 Hypertension type: essential hypertension Chronic diastolic CHF (congestive heart failure) I50.32 CKD (chronic kidney disease) stage 2, GFR 60-89 ml/min N18.2 COPD (chronic obstructive pulmonary disease) J44.9 COPD type: unspecified COPD Diabetes mellitus type 2 in obese E11.69; E66.9 CAD (coronary artery disease) I25.10 Associated angina: angina presence unspecified Coronary Disease-Associated Artery/Lesion type: [place] artery [place] vs. transplanted heart: [place] heart Hyperlipidemia E78.5 Hyperlipidemia type: unspecified
[2019-09-14] MEDS: cyanocobalamin 1,000 mcg/mL SDV 1000 MCG IM (09:55)
[2019-09-14] MEDS: enoxaparin 80 mg/0.8 mL Syringe 70 MG SUBCUT ×2 (09:56→20:47)
--- NOTE | 2019-09-14 10:00 | PC.NURSE ---
1000 BEDSIDE SWALLOW EVAL DONE. PT BECAME NAUSEATED W/ BILE EMESIS. ZOFRAN GIVEN. PO MEDS NOT GIVEN D/T N/V.
--- NOTE | 2019-09-14 11:55 | PC.RESP ---
Patient given information on Pulmonary Rehab.
[2019-09-14 12:31] LABS: Glucose Point of Care 145 mg/dL (70-110)
--- NOTE | 2019-09-14 14:16 | PC.OT ---
OT EVALUATION ATTEMPTED. PATIENT BECAME NAUSEATED AND VOMITING. NURSING REQUESTS HOLD UNTIL TOMORROW.
--- NOTE | 2019-09-14 15:15 | USCV_ITS ---
Leilani Araceli Age: 69 Gender: F : 1950 Exam Date: 09/14/2019 15:23 Ordering Phys: Cecile Rosario MD Technologist: Gaviota Pink Exam Location: [facility] [place] Indication: NSTEMI BP: 200 / 87 HR: 95 Rhythm: Sinus Technical Quality: Adequate MEASUREMENTS (Male / Female) Normal Values 2D ECHO LV Diastolic Diameter PLAX 4.2 cm 4.2 - 5.9 / 3.9 - 5.3 cm LV Systolic Diameter PLAX 3.2 cm LV Chamber Size 3.0 cm IVS Diastolic Thickness 0.8 cm 0.6 - 1.0 / 0.6 - 0.9 cm IVS Systolic Thickness 1.1 cm LVPW Diastolic Thickness 2.6 cm 0.6 - 1.0 / 0.6 - 0.9 cm LVPW Systolic Thickness 2.6 cm RV Chamber Size 2.5 cm LVOT Diameter 2.0 cm LV Ejection Fraction 2D Teich 47.5 % LV Ejection Fraction MOD 2C 74.4 % LV Ejection Fraction 2C AL 73.8 % LA Diameter 4.0 cm LA Width 3.1 cm LA Height 5.1 cm RA Width 2.9 cm RA Height 4.3 cm Aorta at Sinotubular Diameter 2.4 cm M-MODE LV Diastolic Diameter MM 5.6 cm 4.2 - 5.9 / 3.9 - 5.3 cm LV Systolic Diameter MM 3.9 cm LV Ejection Fraction MM Teich 56.7 % IVS Diastolic Thickness MM 0.6 cm 0.6 - 1.0 / 0.6 - 0.9 cm IVS Systolic Thickness MM 0.6 cm LVPW Diastolic Thickness MM 0.9 cm 0.6 - 1.0 / 0.6 - 0.9 cm LVPW Systolic Thickness MM 1.6 cm Aortic Annulus Diameter 2.5 cm LA Ao Ratio MM 1.6 MV E Point Septal Separation 0.8 cm DOPPLER AV Peak Velocity 199.0 cm/s LVOT Peak Velocity 98.0 cm/s AV Area Cont Eq vti 1.5 cm squared AV Area Cont Eq pk 1.6 cm squared MV Area PHT 8.1 cm squared Mitral E to A Ratio 3.3 MV E' Velocity 13.0 cm/s Mitral E to MV E' Ratio 7.3 Mitral E to LV E' Lateral Ratio 9.4 Mitral E to LV E' Septal Ratio 6.0 TR Peak Velocity 290.0 cm/s TR Peak Gradient 33.6 mmHg TV Peak E Velocity 78.0 cm/s Right Atrial Pressure 3.0 mmHg Pulmonary Artery Systolic Pressu 36.6 mmHg PV Peak Velocity 108.0 cm/s RV Acceleration Time 0.2 s RV Ejection Time 0.3 s RV AcT/ET 0.5 FINDINGS Left Ventricle Normal left ventricular cavity size. Increased left ventricular wall thickness. Normal left ventricular systolic function. Left ventricular ejection fraction is estimated at 55-60%. There is possible septal hypokinesis. Grade I diastolic dysfunction (abnormal relaxation filling pattern), normal to mildly elevated filling pressures. Right Ventricle Normal right ventricular size and systolic function, RVSP 36.6 mmHg. Right Atrium Normal right atrial size. Left Atrium Mildly increased left atrial size. Mitral Valve Thickened mitral valve. No mitral valve stenosis. Trace mitral valve regurgitation. Aortic Valve Aortic valve not well visualized. Aortic valve sclerosis without stenosis. No aortic valve regurgitation. Tricuspid Valve Structurally normal tricuspid valve. Pulmonic Valve Pulmonic valve not well visualized. Pericardium Trivial pericardial effusion. No evidence of hemodynamic compromise. Aorta Normal-sized aortic root. CONCLUSIONS 1. Normal left ventricular cavity size. Increased left ventricular wall thickness. Normal left ventricular systolic function. Left ventricular ejection fraction is estimated at 55- 60%. There is possible septal hypokinesis. Grade I diastolic dysfunction (abnormal relaxation filling pattern), normal to mildly elevated filling pressures. 2. Normal right ventricular size and systolic function, RVSP 36.6 mmHg. 3. When compared to previous echocardiogram dated 12/12/2016, there is possible septal hypokinesis now. Beverley Lopez MD (Electronically Signed) Final Date: 15 September 2019 16:29 S
--- NOTE | 2019-09-14 15:19 | PC.SLP ---
Attempted to evaluate patient twice but was unable to due to patient sleeping and nursing request and in the afternoon she was nauseous. Will attempt to evaluate the patient 09/15/19.
[2019-09-14] MEDS: hyDRALAzine 20 mg/mL INJ 1 mL 10 MG IVP ×2 (15:20→19:13)
[2019-09-14] MEDS: metoclopramide 5 mg/mL SDV 2 mL IVP ×2 (15:31→21:22)
[2019-09-14 17:05] LABS: Glucose Point of Care 160 mg/dL (70-110)
[2019-09-14 20:01] LABS: Glucose Point of Care 138 mg/dL (70-110)
[2019-09-14] MEDS: morphine 4 mg/mL SDV 1 mL 2 MG IVP (21:22)
[2019-09-15] VITALS (12 sets, daily range): BP systolic 146–180; BP diastolic 67–114; PULSE 88–104; RESP 12–27; TEMP 36.2–36.7; O2SAT 92–99
[2019-09-15] MEDS: morphine 4 mg/mL SDV 1 mL 2 MG IVP ×2 (01:20→11:10)
[2019-09-15] MEDS: ondansetron 2 mg/ML SDV 2 mL 4 MG IVP ×2 (01:21→14:03)
[2019-09-15] MEDS: hyDRALAzine 20 mg/mL INJ 1 mL 10 MG IVP ×2 (01:54→09:54)
[2019-09-15] MEDS: metroNIDAZOLE IV 500 MG/100 ML PREMIX 100 MG IV ×3 (02:29→18:23)
[2019-09-15] MEDS: famotidine 20 mg/2 mL INJ IVP (04:06)
[2019-09-15] MEDS: sodium chlor 0.9% + KCl 20 mEq 20 MEQ/1,000 ML BAG 100 MEQ IV ×2 (04:07→16:08)
[2019-09-15 04:37] LABS: Basophils % 0.3 %; Hematocrit 37.3 % (37.0-47.0); Hemoglobin 11.2 g/dL (11.5-15.3); Lymphocytes # 1.1 10^3/uL (0.8-4.8); Lymphocytes % 9.3 %; Mean Corpuscular Hemoglobin 25.7 pg (28.0-34.0); Mean Corpuscular Volume 85.6 fL (81-99); Mean Platelet Volume 9.5 fL (7.4-10.4); Monocytes # 0.6 10^3/uL (0.2-0.9); Monocytes % 5.5 %; Neutrophils # 9.8 10^3/uL (1.8-7.7); Neutrophils % 84.5 %; Nucleated Red Blood Cells % 0 %; Platelet Count 354 10^3/cmm (130-400); Red Blood Count 4.36 10^6/uL (4.1-5.3); Red Cell Distribution Width 14.9 % (12.1-15.1); White Blood Count 11.6 10^3/uL (4.0-10.0)
[2019-09-15 04:54] LABS: Blood Urea Nitrogen 10 mg/dL (8-23); Calcium 8.6 mg/dL (8.5-10.5); Carbon Dioxide 21 mmol/L (22-29); Chloride 107 mmol/L (98-107); Glucose 170 mg/dL (65-115); Osmolality Calculated 296 mOsm/kg (285-295); Sodium 143 mmol/L (136-145)
[2019-09-15] MEDS: aztreonam 2,000 MG in sodium chloride 0.9% (plus) 100 ML 200 MG IV ×2 (06:59→16:09)
[2019-09-15 07:12] LABS: Glucose Point of Care 160 mg/dL (70-110)
--- NOTE | 2019-09-15 08:02 | P.PN_ITS ---
Subjective Subjective: Interval history: Had 2 episodes of emesis overnight, hypertensive and mildly tachycardic. Urine output of 650 mL. AM labs noted, continued hypokalemia likely due to vomiting, replace IV. BG controlled. Echo report pending. Following ST evaluation, able to tolerate liquid diet and take oral medications without difficulty. Remains alert and oriented x 3. Will transfer to floor. No acute overnight events reported other than emesis. No BMs. Medications: Reviewed: Yes Medication Review Details: Active Medications Generic Name Dose Route Start Last Admin Trade Name Freq PRN Reason Stop Dose Admin Acetaminophen 650 mg 09/13/19 16:48 09/13/19 20:25 Tylenol AL 650 mg Q6H PRN Administration FEVER Acetaminophen 650 mg 09/14/19 20:15 Tylenol PO Q6H PRN MILD PAIN Amlodipine Besylat e 2.5 mg 09/14/19 09:35 09/14/19 14:44 Norvasc PO Not Given DAILY LUIS Aspirin 325 mg 09/14/19 09:30 09/14/19 14:44 Aspirin PO Not Given DAILY LUIS Atorvastatin Calci um 40 mg 09/14/19 21:00 09/14/19 20:51 Lipitor PO Not Given BEDTIME LUIS Cyanocobalamin 1,000 mcg 09/14/19 09:20 09/14/19 09:55 Vitamin B-12 IM 1,000 mcg DAILY LUIS Administration Dextrose 25 ml 09/13/19 16:48 D50w IVP ONCE PRN hypoglycemia prot ocol Protocol Dextrose 50 ml 09/13/19 16:48 D50w IVP PRN PRN hypoglycemia prot ocol Protocol Enoxaparin Sodium 70 mg 09/13/19 21:15 09/14/19 20:47 Lovenox SUBCUT 70 mg Q12H LUIS Administration Famotidine 20 mg 09/13/19 16:48 09/15/19 04:06 Pepcid Inj IVP 20 mg Q12H LUIS Administration Glucagon 1 mg 09/13/19 16:48 Glucagen IM ONCE PRN Adult Acute Hypog lycemia Prot. Protocol Hydralazine HCl 10 mg 09/13/19 18:09 09/15/19 01:54 Apresoline IVP 10 mg Q4H PRN Administration SYSTOLIC BLOOD AL ESSURE Aztreonam 2,000 mg / Sodium 100 mls @ 200 mls /hr 09/13/19 23:00 09/15/19 06:59 Chloride IV 200 mls/hr Q8H LUIS Administration Protocol Dextrose 500 mls @ 100 mls /hr 09/13/19 16:48 D5w IV ONCE PRN Adult Acute Hypog lycemia Prot Protocol Potassium Chloride /Sodium Chloride 20 meq in 1,000 m ls @ 100 mls/hr 09/13/19 16:48 09/15/19 04:07 Sodium Chlor 0.9 % + Kcl 20 Meq IV 100 mls/hr .Q10H LUIS Administration Metronidazole 500 mg in 100 mls @ 100 mls/hr 09/13/19 18:30 09/15/19 02:29 Flagyl Iv IV 100 mls/hr Q8H LUIS Administration Protocol Insulin Aspart 0 unit 09/13/19 18:00 09/14/19 20:51 Novolog SUBCUT Not Given WM&BEDTIME [facility] Protocol Lorazepam 1 mg 09/13/19 16:48 09/13/19 17:48 Ativan IVP 1 mg Q6H PRN Administration AGITATION Metoclopramide HCl 5 mg 09/14/19 15:13 09/14/19 21:22 Reglan IVP 5 mg Q6H PRN Administration NAUSEA AND VOMITI NG Metoprolol Tartrat e 5 mg 09/13/19 18:09 09/13/19 23:13 Metoprolol Tartr ate IV 5 mg Q4H PRN Administration HEART RATE-HIGH Metoprolol Tartrat e 25 mg 09/14/19 18:00 09/14/19 17:04 Lopressor PO Not Given BID [facility] Morphine Sulfate 2 mg 09/13/19 16:48 09/15/19 01:20 Morphine IVP 2 mg Q4H PRN Administration SEVERE PAIN Ondansetron HCl 4 mg 09/13/19 16:48 09/15/19 01:21 Zofran IVP 4 mg Q6H PRN Administration NAUSEA AND VOMITI NG acetanilide Allergy (Verified 09/13/19 12:19) ALGY-Hives amoxicillin Allergy (Verified 09/13/19 12:19) ALGY-Hives ciprofloxacin Allergy (Verified 09/13/19 12:19) ALGY-Hives codeine Allergy (Verified 09/13/19 12:19) ALGY-Hives doxycycline Allergy (Verified 09/13/19 12:19) ALGY-Hives Penicillins Allergy (Verified 09/13/19 12:19) ALGY-Hives propoxyphene Allergy (Verified 09/13/19 12:19) ALGY-Hives Sulfa (Sulfonamide Antibiotics) Allergy (Verified 09/13/19 12:19) ALGY-Hives tetracycline Allergy (Verified 09/13/19 12:19) ALGY-Hives Vitals/I&O/Wt Last Vital Signs Temp 98.9 F 09/14/19 20:00 Pulse 103 H 09/15/19 06:00 Resp 16 09/15/19 06:00 BP 165/83 09/15/19 06:00 Pulse Ox 97 09/15/19 06:00 09/14/19 09/15/19 09/15/19 22:59 06:59 14:59 Intake Total 200 / 1300 1100 / 2400 Output Total 500 / 500 650 / 1150 Balance -300 / 800 450 / 1250 Weight last 48 hrs Weight 72.575 kg Physical Exam Const: COMMON NORMALS: no apparent distress, oriented x3 and alert GENERAL APPEARANCE: cooperative and comfortable NUTRITIONAL APPEARANCE: obese morbidly obese ORIENTATION/CONSCIOUSNESS: Yes awake HENMT: COMMON NORMALS: normocephalic and head/scalp atraumatic HEAD & SCALP: normocephalic and atraumatic MOUTH: moist mucous membranes abnormal Details: parched TEETH & GINGIVA: Yes edentulous Eye: COMMON NORMALS: PERRL, EOMs intact bilaterally and conjunctivae normal CONJUNCTIVA: Yes conjunctivae normal PUPIL: Yes PERRL Neck/C-Spine: COMMON NORMALS: full ROM GENERAL: Yes normal visual inspection and Yes trachea midline Chest: COMMONS NORMALS: inspection of chest normal Resp: COMMON NORMALS: normal respiratory effort, no retractions, no use of accessory muscles and clear to auscultation bilaterally EFFORT & INSPECTION: Yes able to speak in complete sentences, Yes symmetric chest movement and Yes tachypneic AUSCULTATION: clear to auscultation bilaterally Cardio: COMMON NORMALS: S1 normal heart sound, S2 normal heart sound and no murmurs RATE: tachycardic RHYTHM: abnormal rhythm HEART SOUNDS: S1 normal and S2 normal GI: COMMON NORMALS: normal to inspection, nondistended, normoactive bowel sounds and soft to palpation INSPECTION: Yes central obesity PALPATION: Yes soft : BLADDER/KIDNEY EXAM: Yes catheter in place Catheter type (Female): urethral Extremity: COMMON NORMALS: normal to inspection, full ROM, no clubbing, cyanosis or edema and no pedal edema Neuro: COMMON NORMALS: oriented x3, moves all extremities, no focal motor deficits and no sensory deficits noted SENSORIUM/ORIENTATION: Yes alert Psych: COMMON NORMALS: mental status grossly normal, thought process normal, cooperative and speech normal SPEECH: Yes normal speech MOOD & AFFECT: Yes flat affect THOUGHT PROCESS: normal thought process ATTENTION/CONCENTRATION: Yes attention grossly impaired and Yes concentration grossly impaired Skin: COMMON NORMALS: no rashes or lesions noted, no jaundice, no petechiae an d no mottling GENERAL SKIN EXAM: no rashes or lesions noted Urinary Catheter Management^: Bustillos: Cath Placed During This Visit: yes Urethral Indwelling: Yes Reason for Continuing Indwelling Catheter: Accurate Measurement of Urinary Output in Critically Ill Patients Urinary Catheter Date of Insertion: 09/13/19 Data : 09/15/19 04:28 09/15/19 04:28 Micro: Microbiology 09/13/19 13:24 Blood Culture - Preliminary Blood NEGATIVE TO DATE 09/13/19 12:39 Blood Culture - Preliminary Blood NEGATIVE TO DATE 09/13/19 13:43 Urine Culture - Preliminary Urine,Clean Catch A&P Assessment and plan (1) Altered mental status: -Presented with altered mental status, collateral information obtained from family and thorough review of medical record. Given gradual onset of me karla loss, forgetfulness, waxing and waning quality, suspect underlying dementia that has worsened in light of possible infection -Associated sepsis as evidenced by leukocytosis, tachycardia, fever, lactic acidosis -UA positive for bacteria, ketones, protein -Chest x-ray unremarkable -CT abdomen and pelvis reviewed with reported diverticulosis without diverticulitis, mild colitis, mild perinephric stranding around each kidney -CT head negative -Clinically appears dehydrated (ketonuria, lactic acidosis, increased anion gap); IV fluid hydration -blood cx: prelim negative -urine cx: prelim negative -on Aztreonam (due to noted allergy profile) and Flagyl for appropriate anaerobic coverage given evidence of colitis (day 3) -lactic acidosis-3.5, suspect infection as well as element of dehydration -order stool studies including C.difficile though has not been on recent abx -ammonia-17, low normal TSH, low vitamin B12, folate wnl; replace B12 -Bustillos catheter placement for accurate Is & Os -CLD for now; advance as tolerated -noted hyperglycemia; improved -hypoglycemia precautions particularly as NPO -fall precautions -PT/OT evaluations -ST evaluation for cognitive testing -off 1:1 monitoring as mental status has improved -Ativan PRN if increased agitation Status: Acute Qualifiers: Altered mental status type: disorientation Qualified Code(s): R41.0 - Disorientation, unspecified (2) Sepsis: -as noted above Status: Acute Qualifiers: Sepsis acute organ dysfunction status: with acute organ dysfunction Sepsis type: sepsis due to unspecified organism Severe sepsis acute organ dysfunction type: encephalopathy Severe sepsis shock status: without septic shock Qualified Code(s): A41.9 - Sepsis, unspecified organism; R65.20 - Severe sepsis without septic shock; G93.40 - Encephalopathy, unspecified (3) NSTEMI (non-ST elevated myocardial infarction): -troponins noted with + significant delta of 22; will need to discuss further with cardiology as will likely need further w/u -has known CAD hx, prior LAD stenting in 03/2007 -on therapeutic Lovenox overnight -on ASA, statin, oral BB; amlodipine -telemetry monitoring -noted lipid panel -Echo pending report Status: Acute (4) HTN (hypertension): -has known hx of HTN, presented with hypertensive urgency which has now resolved -per med list is on Atenolol 50 mg and Amlodipine 2.5 mg -hydralazine PRN for now until can take PO meds -close monitoring of vital signs Status: Chronic Qualifiers: Hypertension type: essential hypertension Qualified Code(s): I10 - Essential (primary) hypertension (5) Chronic diastolic CHF (congestive heart failure): -has known hx of chronic diastolic CHF, no acute exacerbation currently -Echo (2017): EF=60%, G1DD; repeat ordered given hypertensive urgency and NSTEMI Status: Acute (6) CKD (chronic kidney disease) stage 2, GFR 60-89 ml/min: -has BRENT on CKD stage 2, baseline Cr wnl -likely secondary to dehydration given poor oral intake, diarrhea, N/V -continue to monitor renal function, avoid nephrotoxins -IVF hydration -noted evidence of bilateral perinephric stranding on imaging -has Bustillos catheter; continue to monitor urine output, assess daily for removal Status: Chronic (7) COPD (chronic obstructive pulmonary disease): -has documented hx of COPD, prior smoker, not oxygen dependent -no evidence of acute exacerbation currently -supplemental oxygen as needed -continue to monitor respiratory status Status: Chronic Qualifiers: COPD type: unspecified COPD Qualified Code(s): J44.9 - Chronic obstructive pulmonary disease, unspecified (8) Diabetes mellitus type 2 in obese: -has hx of NIDDM type II -hypoglycemia precautions, accuchecks, ISS -A1c at goal-7.1 -noted urine ketones, significant hyperglycemia, increased anion gap though I suspect dehydration to be more of an element here than DKA -when PO appropriate, consistent carb diet Status: Chronic (9) CAD (coronary artery disease): -has prior hx of CAD with stenting of LAD done in 03/2007 -had previously followed up with cardiology Status: Chronic Qualifiers: Associated angina: angina presence unspecified Coronary Disease- Associated Artery/Lesion type: [place] artery [place] vs. transplanted heart: [place] heart Qualified Code(s): I25.10 - Atherosclerotic heart disease of [place] coronary artery without angina pectoris (10) Hyperlipidemia: -lipid panel noted -on statin Status: Chronic Qualifiers: Hyperlipidemia type: unspecified Qualified Code(s): E78.5 - Hyperlipidemia, unspecified Additional A&P Information -Chronic back pain, sciatica; had just been started on [place] by PCP; pain control as needed -Obesity: BMI-32 kg/m2 -hx of R breast infiltrating ductal carcinoma s/p chemo and adjuvant hormonal therapy (Arimidex) -Tachycardia, ECGs noted; telemetry monitoring, BB -Nausea; reglan, zofran; nausea improving -GI ppx with famotidine -DVT ppx not needed as on therapeutic Lovenox -Dispo: has declined SNF placement at this time, has remained alert and oriented x 3 since 09/13, no apparent cognitive deficit on testing per ST -Code status: FULL code per discussion with family -transfer to floor for continued care Attestations Medical Necessity Statement*: Patient requires hospitalization for continued IV antibiotics, IVF hydration pending improved oral intake, and continued management of NSTEMI. Time Spent in Patient Care: 16 - 35 minutes (>than 50% of time spent in counselling and/or direct pt care on unit) . Coding Level of Care Code Acute Primary Teaching Assistant for Chg Fwd Exam Comprehensive Diagnoses Altered mental status R41.0 Altered mental status type: disorientation Sepsis A41.9; R65.20; G93.40 Sepsis acute organ dysfunction status: with acute organ dysfunction Sepsis type: sepsis due to unspecified organism Severe sepsis acute organ dysfunction type: encephalopathy Severe sepsis shock status: without septic shock NSTEMI (non-ST elevated myocardial infarction) I21.4 HTN (hypertension) I10 Hypertension type: essential hypertension Chronic diastolic CHF (congestive heart failure) I50.32 CKD (chronic kidney disease) stage 2, GFR 60-89 ml/min N18.2 COPD (chronic obstructive pulmonary disease) J44.9 COPD type: unspecified COPD Diabetes mellitus type 2 in obese E11.69; E66.9 CAD (coronary artery disease) I25.10 Associated angina: angina presence unspecified Coronary Disease-Associated Artery/Lesion type: [place] artery [place] vs. transplanted heart: [place] heart Hyperlipidemia E78.5 Hyperlipidemia type: unspecified
[2019-09-15] MEDS: metoprolol tartrate 25 mg Tablet PO ×2 (08:14→18:21)
[2019-09-15] MEDS: amlodipine 5 mg Tablet 2.5 MG PO (08:14)
[2019-09-15] MEDS: aspirin 325 mg Tablet PO (08:14)
[2019-09-15] MEDS: cyanocobalamin 1,000 mcg/mL SDV 1000 MCG IM (08:15)
[2019-09-15] MEDS: enoxaparin 80 mg/0.8 mL Syringe 70 MG SUBCUT ×2 (08:16→21:34)
[2019-09-15] MEDS: potassium chloride premix 40 MEQ/100 ML PREMIX 25 MEQ IV (08:45)
[2019-09-15] MEDS: lidocaine 1% INJ 20 mL 5 ML IV (08:45)
[2019-09-15 11:24] LABS: Glucose Point of Care 143 mg/dL (70-110)
--- NOTE | 2019-09-15 13:23 | PC.NURSE ---
Report called to RAY Owens. Pt is AAOX3, no complaints at this time. Pt is resting quietly in bed. Will transfer via wc with personal belongings to room 277-2. IVF infusing as ordered. Pt has had KCL 40mEq IVP this shift as ordered. Pt has drank some fluids for breakfast and lunch. Bustillos is patent and draining to bedside. Family has called and given an update on the pt's condition.
--- NOTE | 2019-09-15 13:37 | PC.NURSE ---
Pt transferred to Room 277-2 at this time. All personal belongings sent with pt. No complaints voiced at this time.
--- NOTE | 2019-09-15 14:14 | PC.OT ---
OT EVALUATION ATTEMPTED. PATIENT HAS JUST VOMITED AND REQUESTS HOLD FOR TODAY. IS AGREEABLE TO A.M. EVALUATION TOMORROW.
[2019-09-15 16:46] LABS: Glucose Point of Care 167 mg/dL (70-110)
[2019-09-15] MEDS: metoclopramide 5 mg/mL SDV 2 mL IVP (18:21)
[2019-09-15] MEDS: famotidine 20 mg Tablet PO (18:21)
[2019-09-15 21:17] LABS: Glucose Point of Care 150 mg/dL (70-110)
[2019-09-15] MEDS: atorvastatin 40 mg Tablet PO (21:33)
[2019-09-16] VITALS (7 sets, daily range): BP systolic 144–185; BP diastolic 72–85; PULSE 83–105; RESP 16–18; TEMP 36.6–36.9; O2SAT 93–98; BMI 32.1
[2019-09-16] MEDS: aztreonam 2,000 MG in sodium chloride 0.9% (plus) 100 ML 200 MG IV ×3 (01:10→15:10)
[2019-09-16] MEDS: metroNIDAZOLE IV 500 MG/100 ML PREMIX 100 MG IV ×2 (03:27→11:30)
[2019-09-16 05:45] LABS: Basophils % 0.5 %; Eosinophils # 0.1 10^3/uL (0.0-0.8); Eosinophils % 0.7 %; Hemoglobin 10.9 g/dL (11.5-15.3); Mean Corpuscular HGB Conc 29.5 g/dL (30.0-36.0); Mean Corpuscular Hemoglobin 26.4 pg (28.0-34.0); Mean Corpuscular Volume 89.6 fL (81-99); Mean Platelet Volume 9.5 fL (7.4-10.4); Monocytes # 0.6 10^3/uL (0.2-0.9); Monocytes % 6.6 %; Neutrophils # 6.8 10^3/uL (1.8-7.7); Nucleated Red Blood Cells % 0 %; Platelet Count 305 10^3/cmm (130-400); Red Blood Count 4.13 10^6/uL (4.1-5.3); Red Cell Distribution Width 15.4 % (12.1-15.1); White Blood Count 8.5 10^3/uL (4.0-10.0)
[2019-09-16 06:15] LABS: Anion Gap 16.1 (5-19); Blood Urea Nitrogen 7 mg/dL (8-23); Calcium 8.4 mg/dL (8.5-10.5); Carbon Dioxide 21 mmol/L (22-29); Chloride 105 mmol/L (98-107); Creatinine Clr Calc Pharmacy 75.4375; Glucose 128 mg/dL (65-115); Osmolality Calculated 285 mOsm/kg (285-295); Potassium 3.1 mmol/L (3.5-5.1); Sodium 139 mmol/L (136-145)
[2019-09-16 06:57] LABS: Glucose Point of Care 121 mg/dL (70-110)
--- NOTE | 2019-09-16 06:58 | ECG_ITS ---
NAME OF STUDY: LEXISCAN SESTAMIBI STRESS TEST INDICATION: Chest Pain PROCEDURE: At the baseline, the blood pressure was 207/97 mmHg, oxygen saturation 97% with a heart rate of 97 bpm. The electrocardiogram showed normal sinus rhythm, left axis deviation and anteroseptal myocardial infarction of indeterminate age. The Lexiscan was infused over a period of 20 seconds. A total of 0.4 milligrams of Lexiscan was infused. The stress phase was continued for a total of 5 minutes. Heart rate at the end of the stress phase was 123 bpm, oxygen saturation 98% with a blood pressure 178/88 mmHg. The EKG at the peak infusion revealed sinus tachycardia with no significant ST-T wave changes. Sestamibi was injected 20 seconds after the Lexiscan infusion. Frequent PVCs were noted during stress. Blood pressure at the end of the recovery phase was 177/95 mmHg, oxygen saturation 97% with a heart rate of 107 beats per minute. CONCLUSION: 1. No significant EKG changes with Lexiscan infusion. 2. No LexiScan induced chest pain or cardiac arrhythmia. 3. Normal blood pressure and heart rate response. 4. Sestamibi/sestamibi perfusion scan pending; see separate report. Electronically Signed On 09-16-2019 13:31:38 CDT by Beverley Lopez M.D. [email or web address]
--- NOTE | 2019-09-16 08:42 | SUR.PREOP ---
Patient reports no pain or discomfort prior to the start of the stress test
[2019-09-16] MEDS: ondansetron 2 mg/ML SDV 2 mL 4 MG IVP (08:43)
[2019-09-16] MEDS: regadenoson 0.4 Mg/5 ml Syringe IVP (08:45)
[2019-09-16] MEDS: aminophylline 25 mg/mL SDV 10 mL IVP ×2 (08:52→08:57)
[2019-09-16] MEDS: amlodipine 5 mg Tablet 2.5 MG PO (10:25)
[2019-09-16] MEDS: famotidine 20 mg Tablet PO (10:25)
[2019-09-16] MEDS: aspirin 325 mg Tablet PO (10:25)
[2019-09-16] MEDS: cyanocobalamin 1,000 mcg/mL SDV 1000 MCG IM (10:26)
[2019-09-16] MEDS: enoxaparin 80 mg/0.8 mL Syringe 70 MG SUBCUT (10:26)
[2019-09-16] MEDS: metoprolol tartrate 25 mg Tablet PO (10:26)
[2019-09-16] MEDS: sodium chlor 0.9% + KCl 20 mEq 20 MEQ/1,000 ML BAG 100 MEQ IV (10:40)
[2019-09-16 11:17] LABS: Glucose Point of Care 209 mg/dL (70-110)
--- NOTE | 2019-09-16 12:37 | PC.NURSE ---
Spoke with patient daughter this am regarding patient not being able to have visitors. Discussed with family member indications for family visit to be only if family member is comfort care due to current Covid precautions. Informed patient that we could use facetime for visit. Patient daughter asked do we need to bring police up there with us? Informed daughter that I would discuss her request with my housekeeping manager. Pham Santamaria notified of conversation detail who then relayed these to HEMAL [place] security.
--- NOTE | 2019-09-16 15:03 | PC.SOCIAL ---
IM initialed explained and copy provided to patient. She verbalized understanding.
--- NOTE | 2019-09-16 15:31 | PM.DCS ---
Discharge Providers Date of Admission: 09/13/19 14:30 Date of Discharge: September 16, 2019 Attending Provider at Admission: Cecile Rosario MD Attending Provider at Discharge: Cecile Rosario MD Primary Care Provider: Jake Kilpatrick DO Diagnoses at Discharge Discharge Diagnosis (1) Altered mental status: Status: Resolved Problem details: -Presented with altered mental status, collateral information obtained from family and thorough review of medical record. Given gradual onset of memory loss, forgetfulness, waxing and waning quality, suspect underlying dementia that has worsened in light of possible infection -Associated sepsis as evidenced by leukocytosis, tachycardia, fever, lactic acidosis -UA positive for bacteria, ketones, protein -Chest x-ray unremarkable -CT abdomen and pelvis reviewed with reported diverticulosis without diverticulitis, mild colitis, mild perinephric stranding around each kidney -CT head negative -Clinically appears dehydrated (ketonuria, lactic acidosis, increased anion gap); IV fluid hydration -blood cx: prelim negative -urine cx: prelim negative -on Aztreonam (due to noted allergy profile) and Flagyl for appropriate anaerobic coverage given evidence of colitis (day 3) -lactic acidosis-3.5, suspect infection as well as element of dehydration -order stool studies including C.difficile though has not been on recent abx -ammonia-17, low normal TSH, low vitamin B12, folate wnl; replace B12 -Bustillos catheter placement for accurate Is & Os; discontinued today -cardiac diet as tolerated -noted hyperglycemia; improved -hypoglycemia precautions particularly as NPO -fall precautions -PT/OT evaluations -ST evaluation for cognitive testing -off 1:1 monitoring as mental status has improved -Ativan PRN if increased agitation Qualifiers: Altered mental status type: disorientation Qualified Code(s): R41.0 - Disorientation, unspecified (2) Sepsis: Status: Resolved Qualifiers: Sepsis acute organ dysfunction status: with acute organ dysfunction Sepsis type: sepsis due to unspecified organism Severe sepsis acute organ dysfunction type: encephalopathy Severe sepsis shock status: without septic shock Qualified Code(s): A41.9 - Sepsis, unspecified organism; R65.20 - Severe sepsis without septic shock; G93.40 - Encephalopathy, unspecified (3) NSTEMI (non-ST elevated myocardial infarction): Status: Acute Problem details: -troponins noted with + significant delta of 22; discussed with cardiology -has known CAD hx, prior LAD stenting in 03/2007 -on therapeutic Lovenox -on ASA, statin, oral BB; amlodipine -telemetry monitoring -noted lipid panel -Echo: EF=55-60%, G1DD, possible septal hypokinesis, trace MR Patient has had prior nuclear stress testing in 2016 indicative of no significant coronary ischemia, mild diffuse hypokinesia of the septum. In light of NSTEMI, will go ahead and repeat nuclear stress testing today negative for significant ischemia (4) HTN (hypertension): Status: Chronic Problem details: -has known hx of HTN, presented with hypertensive urgency which has now resolved -per med list is on Atenolol 50 mg and Amlodipine 2.5 mg -hydralazine PRN for now until can take PO meds -close monitoring of vital signs Qualifiers: Hypertension type: essential hypertension Qualified Code(s): I10 - Essential (primary) hypertension (5) Chronic diastolic CHF (congestive heart failure): Status: Acute Problem details: -has known hx of chronic diastolic CHF, no acute exacerbation currently -Echo (2016): EF=60%, G1DD; repeat ordered given hypertensive urgency and NSTEMI (6) CKD (chronic kidney disease) stage 2, GFR 60-89 ml/min: Status: Chronic Problem details: -has BRENT on CKD stage 2, baseline Cr wnl; BRENT resolved -likely secondary to dehydration given poor oral intake, diarrhea, N/V -continue to monitor renal function, avoid nephrotoxins -IVF hydration -noted evidence of bilateral perinephric stranding on imaging -has Bustillos catheter; continue to monitor urine output, assess daily for removal (7) COPD (chronic obstructive pulmonary disease): Status: Chronic Problem details: -has documented hx of COPD, prior smoker, not oxygen dependent -no evidence of acute exacerbation currently -supplemental oxygen as needed -continue to monitor respiratory status Qualifiers: COPD type: unspecified COPD Qualified Code(s): J44.9 - Chronic obstructive pulmonary disease, unspecified (8) Diabetes mellitus type 2 in obese: Status: Chronic Problem details: -has hx of NIDDM type II -hypoglycemia precautions, accuchecks, ISS -A1c at goal-7.1 -noted urine ketones, significant hyperglycemia, increased anion gap though I suspect dehydration to be more of an element here than DKA (9) CAD (coronary artery disease): Status: Chronic Problem details: -has prior hx of CAD with stenting of LAD done in 03/2007 -had previously followed up with cardiology Qualifiers: Coronary Disease-Associated Artery/Lesion type: [place] artery [place] vs. transplanted heart: [place] heart Associated angina: angina presence unspecified Qualified Code(s): I25.10 - Atherosclerotic heart disease of [place] coronary artery without angina pectoris (10) Hyperlipidemia: Status: Chronic Problem details: -lipid panel noted -on statin Qualifiers: Hyperlipidemia type: unspecified Qualified Code(s): E78.5 - Hyperlipidemia, unspecified Other Information Additional DC diagnoses/information: -Chronic back pain, sciatica; had just been started on [place] by PCP; pain control as needed -Obesity: BMI-32 kg/m2 -hx of R breast infiltrating ductal carcinoma s/p chemo and adjuvant hormonal therapy (Arimidex) -Tachycardia, ECGs noted; telemetry monitoring, BB. Resolved -Nausea; reglan, zofran; nausea improving Reason for Visit Reason for Visit: Reason For Visit: NSTEMI Hospital Course Discharge Summary: Patient was admitted to ICU secondary to noted degree of confusion with associated sepsis as well as need for COVID-19 testing. Imaging findings were notable for diverticulosis, mild colitis, mild perinephric stranding bilaterally. She was started on broad-spectrum IV antibiotics on admission as well as IV fluid hydration. Her troponins were noted to be elevated and further evaluation was done including echo and stress testing as noted above. Case was discussed with Dr. Lopez and in light of patient being asymptomatic as well as negative stress testing, she does not need anything further at this time. She will need to follow-up with Dr. Garner who is her primary load out worker. Patient had a difficult time tolerating oral intake initially with noted nausea and non-bloody non-bilious emesis. With time, IV fluid hydration, antiemetics and gradual initiation of oral intake she has been able to tolerate diet. Once mental status had improved and she is now back to her baseline, she was transferred to the floor for continued care. COVID-19 testing is negative (isolation precautions discontinued), leukocytosis has resolved, hemoglobin has been stable, potassium has been replaced as needed, renal function is normal, and both blood culture and urine culture have been negative. She has been afebrile with adjustments made to oral antihypertensives to allow for optimal blood pressure control. As such amlodipine dose has been increased and she has been taken off atenolol in favor of metoprolol. While she was undergoing work-up for NSTEMI, she was covered with therapeutic Lovenox. Given patient's initial presentation with significant altered mental status, impression was that she would require SNF placement. Once her mental status had returned to baseline, she declined this and following discussion with family and patient they have agreed to home health services. She will need to continue to follow-up with her primary care provider as well. Of note I will not continue antibiotic treatment at this time given patient's clinical improvement, noted mild findings on imaging and her allergy profile which includes multiple antibiotics. Bustillos catheter was discontinued prior to discharge and she has been able to void without difficulty. Stool studies were not sent as patient has not had any bowel movements during her hospital stay. Physical Exam Const: COMMON NORMALS: no apparent distress, oriented x3 and alert GENERAL APPEARANCE: cooperative and comfortable NUTRITIONAL APPEARANCE: obese morbidly obese ORIENTATION/CONSCIOUSNESS: Yes awake OTHER: -Very good spirits HENMT: COMMON NORMALS: normocephalic, head/scalp atraumatic and moist oral mucous membranes HEAD & SCALP: normocephalic and atraumatic TEETH & GINGIVA: Yes edentulous Eye: COMMON NORMALS: PERRL, EOMs intact bilaterally and conjunctivae normal CONJUNCTIVA: Yes conjunctivae normal PUPIL: Yes PERRL Neck/C-Spine: COMMON NORMALS: full ROM GENERAL: Yes normal visual inspection and Yes trachea midline Chest: COMMONS NORMALS: inspection of chest normal Resp: COMMON NORMALS: normal respiratory effort, no retractions, no use of accessory muscles and clear to auscultation bilaterally EFFORT & INSPECTION: Yes able to speak in complete sentences and Yes symmetric chest movement AUSCULTATION: clear to auscultation bilaterally Cardio: COMMON NORMALS: regular rate, regular rhythm, S1 normal heart sound, S2 normal heart sound and no murmurs RATE: regular rate RHYTHM: regular rhythm HEART SOUNDS: S1 normal and S2 normal GI: COMMON NORMALS: normal to inspection, nondistended, normoactive bowel sounds and soft to palpation INSPECTION: Yes central obesity PALPATION: Yes soft : BLADDER/KIDNEY EXAM: No catheter in place Extremity: COMMON NORMALS: normal to inspection, full ROM, no clubbing, cyanosis or edema and no pedal edema Neuro: COMMON NORMALS: oriented x3, moves all extremities, no focal motor deficits and no sensory deficits noted SENSORIUM/ORIENTATION: Yes alert Psych: COMMON NORMALS: mental status grossly normal, thought process normal, cooperative and speech normal SPEECH: Yes normal speech MOOD & AFFECT: Yes flat affect THOUGHT PROCESS: normal thought process ATTENTION/CONCENTRATION: Yes attention grossly impaired and Yes concentration grossly impaired Skin: COMMON NORMALS: no rashes or lesions noted, no jaundice, no petechiae and no mottling GENERAL SKIN EXAM: no rashes or lesions noted Urinary Catheter Management^: Bustillos: Cath Placed During This Visit: yes Urethral Indwelling: Yes Reason for Continuing Indwelling Catheter: Other Urinary Catheter Date of Insertion: 09/13/19 Discharge Data Data Completed and Pending: Completed Studies During Hospitalization Category Date Time Status CT abdomen pelvis w con* [id number] Stat Cat Scan 09/13/19 12:[address] head wo con* [id number] Urgent Cat Scan 09/13/19 12:[address] Te [address] MIBI [Sestamibi Stress Test Reque st Exams 09/16/19 06:58 Completed ] Routine XR chest 1V reshma ble [id number] Stat Exams 09/13/19 12:18 Completed NM rl perf SPECT r/s* [id number] Routin e Nuc Med 09/16/19 16:55 Completed CV echo complete* [id number] Stat Ultrasound 09/14/19 15:15 Completed Pending at discharge Category Date Time Status Sestamibi Stress Test Request Routi ne Exams 09/15/19 16:55 Ordered Blood Culture Sta t Lab 09/13/19 13:24 Results Clostridium Diffi cile BY PCR Routin e Lab 09/13/19 18:04 Uncollected Enteric Bacterial Panel by PCR Rout ine Lab 09/13/19 18:04 Uncollected Enteric Parasite Panel by PCR Routi ne Lab 09/13/19 18:04 Uncollected Immunochemical Fe montez OCB Routine Lab 09/13/19 18:04 Uncollected Labs from last 24 hours 09/16/19 09/16/19 09/16/19 11:10 06:50 05:27 WBC RBC Hgb Hct MCV MCH MCHC RDW Plt Count MPV Neut % (Auto) Lymph % (Auto) [place] % (Auto) Eos % (Auto) Baso % (Auto) Neut # (Auto) Lymph # (Auto) [place] # (Auto) Eos # (Auto) Baso # (Auto) Nucleated RBC % (a uto) Nucleated RBCs # Sodium 139 Potassium 3.1 L Chloride 105 Carbon Dioxide 21 L Anion Gap 16.1 BUN 7 L Creatinine 0.7 GFR Calculation 83.0 L Glucose 128 H POC Glucose 209 121 Calculated Osmolal ity 285 Calcium 8.4 L 09/16/19 09/15/19 09/15/19 05:27 21:14 16:41 WBC 8.5 RBC 4.13 Hgb 10.9 L Hct 37.0 MCV 89.6 MCH 26.4 L MCHC 29.5 L RDW 15.4 H Plt Count 305 MPV 9.5 Neut % (Auto) 80.0 Lymph % (Auto) 12.0 [place] % (Auto) 6.6 Eos % (Auto) 0.7 Baso % (Auto) 0.5 Neut # (Auto) 6.8 Lymph # (Auto) 1.0 [place] # (Auto) 0.6 Eos # (Auto) 0.1 Baso # (Auto) 0.0 Nucleated RBC % (a uto) 0 Nucleated RBCs # 0.0 Sodium Potassium Chloride Carbon Dioxide Anion Gap BUN Creatinine GFR Calculation Glucose POC Glucose 150 167 Calculated Osmolal ity Calcium Vitals: Last Vital Signs Temp 98.5 F 09/16/19 11:31 Pulse 83 09/16/19 11:31 Resp 18 09/16/19 11:31 BP 163/85 09/16/19 11:31 Pulse Ox 97 09/16/19 11:31 Discharge Plan Discharge Patient Disposition: Home Health Service Condition: Stable Prescriptions: New atorvastatin 40 mg Tablet 40 mg PO BEDTIME 30 Days Qty: 30 RF: 0 amlodipine 5 mg Tablet 5 mg PO DAILY 30 Days Qty: 30 RF: 0 metoprolol tartrate 25 mg Tablet 25 mg PO BID 30 Days Qty: 60 RF: 0 Adult Aspirin Regimen 81 mg tablet,delayed release (DR/EC) 81 mg PO DAILY 30 Days Qty: 30 RF: 0 Zofran 4 mg tablet 4 mg PO Q8H 5 Days Qty: 15 RF: 0 Continued citalopram 40 mg Tablet 40 mg PO DAILY RF: 0 tizanidine 4 mg tablet 4 mg PO TID PRN (Reason: Muscle Pain) RF: 0 ranitidine HCl 300 mg Tablet 300 mg PO BID RF: 0 hydrocodone-acetaminophen 5-325 mg tablet 1 tab PO TID PRN (Reason: Pain) RF: 0 clopidogrel 75 mg tablet 75 mg PO DAILY RF: 0 metformin 1,000 mg Tablet 1,000 mg PO BID RF: 0 Discontinued amlodipine 2.5 mg tablet 2.5 mg PO DAILY RF: 0 atenolol 50 mg Tablet 50 mg PO DAILY RF: 0 Discharge Orders: Discharge Order (Routine); Ordered 09/16/19 Ordered By: Cecile Rosario Referrals: Jake Kilpatrick, [Primary Care Provider] - 4-7 days (mathis javan will call thursday) Discharge Diet: Cardiac Discharge Activity: Increase activity as tolerated Discharge Attestations Time Spent in Discharge Care*: greater than 30 min Specific Discharge Activities: Specific discharge activities: educating patient, educating and/or supporting family/caregiver, discussing with pcp/other providers, discussing with rn case management/social workers/dc planners, documenting/other paperwork and evaluating patient/reviewing data Status at Discharge: Cognitive status at discharge: cognitively intact, Behavioral status at discharge: cooperative, Functional status at discharge: uses cane/walker Overall status at discharge: patient is back to baseline Quality Metrics Clinical Quality Measures During this hospital stay, did patient experience: None Coding Level of Care Code Acute Child Caregiver Private Home for g Fwd Diagnoses Altered mental status R41.0 Altered mental status type: disorientation Sepsis A41.9; R65.20; G93.40 Sepsis acute organ dysfunction status: with acute organ dysfunction Sepsis type: sepsis due to unspecified organism Severe sepsis acute organ dysfunction type: encephalopathy Severe sepsis shock status: without septic shock NSTEMI (non-ST elevated myocardial infarction) I21.4 HTN (hypertension) I10 Hypertension type: essential hypertension Chronic diastolic CHF (congestive heart failure) I50.32 CKD (chronic kidney disease) stage 2, GFR 60-89 ml/min N18.2 COPD (chronic obstructive pulmonary disease) J44.9 COPD type: unspecified COPD Diabetes mellitus type 2 in obese E11.69; E66.9 CAD (coronary artery disease) I25.10 Coronary Disease-Associated Artery/Lesion type: [place] artery [place] vs. transplanted heart: [place] heart Associated angina: angina presence unspecified Hyperlipidemia E78.5 Hyperlipidemia type: unspecified
--- NOTE | 2019-09-16 16:38 | PC.NURSE ---
Discharge instructions given per the physician's orders. Patient verbalized understanding of information and did not have any further questions.
--- NOTE | 2019-09-16 16:55 | NMCV_ITS ---
NM rl perf SPECT r/s* [id number] Araceli Duke Age: 69 Gender: F : 1950 Exam Date: 09/16/2019 07:43 Ordering Phys: Cecile Rosario MD Technologist: KRISTYN Ann Exam Location: [facility] Indications: NSTEMI STRESS TEST Please see separate stress test report in [facility] for full findings IMAGE PROTOCOL Rest/Stress 1 Lexiscan Day Radiopharmaceutical Dose (mCi) Administration Site Administered by Rest: Tc-99m 10.8 IV KRISTYN Ann Sestamibi Stress:Tc-99m 32.9 IV KRISTYN Gómez Sestamibi Rest: 16-Sep-2019 60 Discovery 630 Stress: 16-Sep-2019 30 Discovery 630 0.4mg Lexiscan. Images obtained in supine and prone position. SPECT RESULTS Technical Quality: Excellent Raw Data Analysis: Normal Image Corrections: No attenuation or motion correction applied Summed Stress Score: 13 Summed Rest Score: 15 Summed Difference Score: 0 PERFUSION FINDINGS Large size perfusion abnormality of moderate severity of entire inferior, mid inferolateral and apical lateral, apical septal, apical anterior and apical mcrae on rest and stress images. FUNCTIONAL RESULTS (calculated via Gated SPECT) Stress Image LV EF (%): 50 Stress EDV (mL):102 TID: 0.87 Stress ESV (mL):51 FUNCTIONAL FINDINGS: The left ventricle is normal in size. Transient Ischemia Dilatation of 0.87. There is lower normal left ventricular systolic function. The left ventricular ejection fraction is lower normal with a value of 50%. There is mild apical hypokinesis IMPRESSIONS 1. Large size predominantly fixed perfusion abnormality of moderate severity of entire inferior, mid inferolateral and all apical mcrae. This may be suggestive of old myocardial infarction or scarring in right coronary artery/circumflex artery territory. 2. Overall left ventricular systolic function is low normal with ejection fraction estimated at 50%. 3. There is mild apical hypokinesis. 4. No coronary ischemia based on the study. Beverley Lopez MD (Electronically Signed) Final Date: 16 September 2019 13:54 S
== END 2019-09-16 16:45 | disposition home health service (06) | DRG 871 ==
LOC: ER 14:32 → ICU 14:53 → MEDSURG 09-15 13:49
PROVIDERS: Admitting Provider Family Medicine; Emergency Provider Emergency Medicine; Family Provider Internal Medicine; PCP Internal Medicine; Visit Provider Family Medicine
DX: A41.9 Sepsis, unspecified organism (principal); I21.4 Non-ST elevation (NSTEMI) myocardial infarction; I13.0 Hypertensive heart and chronic kidney disease with heart failure and stage 1 through stage 4 chronic kidney disease, or unspecified chronic kidney disease; I50.32 Chronic diastolic (congestive) heart failure; Z94.0 Kidney transplant status; G93.40 Encephalopathy, unspecified; E87.2 Acidosis; N17.9 Acute kidney failure, unspecified; Z85.3 Personal history of malignant neoplasm of breast; Z92.21 Personal history of antineoplastic chemotherapy; Z92.23 Personal history of estrogen therapy; I89.0 Lymphedema, not elsewhere classified; E11.22 Type 2 diabetes mellitus with diabetic chronic kidney disease; N18.2 Chronic kidney disease, stage 2 (mild); E78.5 Hyperlipidemia, unspecified; I25.10 Atherosclerotic heart disease of native coronary artery without angina pectoris; Z95.5 Presence of coronary angioplasty implant and graft; J44.9 Chronic obstructive pulmonary disease, unspecified; M54.30 Sciatica, unspecified side; Z87.891 Personal history of nicotine dependence; K52.9 Noninfective gastroenteritis and colitis, unspecified; K57.90 Diverticulosis of intestine, part unspecified, without perforation or abscess without bleeding; E66.9 Obesity, unspecified; Z68.32 Body mass index [BMI] 32.0-32.9, adult; E86.0 Dehydration; Z79.84 Long term (current) use of oral hypoglycemic drugs; Z79.891 Long term (current) use of opiate analgesic; E87.6 Hypokalemia; G89.29 Other chronic pain; I16.0 Hypertensive urgency
CPT/HCPCS: 12345; 36415; 36416; 70450; 71045; 74177; 78452; 80048; 80053; 80061; 81001; 82140; 82607; 82746; 82962; 83036; 83605; 84443; 84484; 85025; 87040; 87086; 87635; 87804; 92523; 92610; 93005; 93017; 93306; 96372; 96374; 96375; 97110; 97116; 97161; 97165; 97530; 99284; A9500; J0280; J0360; J1644; J1650; J1815; J2001; J2060; J2270; J2405; J2765; J2785; J3370; J3420; J3480; J3490; J7030; J7050; Q9967; S0030

== ENCOUNTER 2020-08-09 11:03 | Outpatient (CLI) | payer MEDICARE, MEDICAID, SELFPAY ==
--- NOTE | 2020-08-09 11:06 | MM_ITS ---
WS: [id number] BILATERAL DIGITAL DIAGNOSTIC MAMMOGRAM MAMMOGRAPHY WITH CAD CLINICAL INFORMATION: HX OF BREAST CA HISTORY: Right breast tenderness COMPARISON: August 01, 2019 TECHNIQUE: Bilateral CC, MLO, and ML views. FINDINGS: Scattered fibroglandular densities bilaterally. Punctate and lucent centered calcifications. Postoper ative changes right lumpectomy. Treatment-related changes right breast. Volume loss right breast is u nchanged. Extensive benign calcifications bilaterally right greater than left similar in appearance t o previous. Biopsy clip upper outer right breast. After calcifications. No suspicious focal mass, asymmetry, calcifications, or architectural distortion. No evidence of jim gnancy. MM/[place] [id number] IMPRESSION: BI-RADS: 2-Benign FOLLOW UP: 1 Year Follow-up Recommend return to annual diagnostic mammography.
== END 2020-08-09 11:04 | disposition home or self-care (01) ==
LOC: RADSHAW 11:05
PROVIDERS: Family Provider Internal Medicine; PCP Internal Medicine; Visit Provider Internal Medicine
DX: Z85.3 Personal history of malignant neoplasm of breast (principal)
CPT/HCPCS: 77066

== ENCOUNTER 2021-12-05 09:10 | Outpatient (CLI) | payer MEDICARE, MEDICAID, SELFPAY ==
--- NOTE | 2021-12-05 09:22 | MM_ITS ---
WS: [id number] DIAGNOSTIC BILATERAL DIGITAL BREAST TOMOSYNTHESIS MAMMOGRAPHY WITH CAD HISTORY: HX OF BREAST CA COMPARISON: 08/09/2020, 08/01/2019 and 05/28/2018 TECHNIQUE: Bilateral craniocaudad, mediolateral oblique, and mediolateral views are submitted with to mosynthesis and SM. Computer aided detection utilized. Breast composition: The breasts are heterogeneously dense, which may obscure small masses. Postsurgic al and postradiation changes are noted in the RIGHT breast. Diffuse trabecular thickening and skin th ickening. Dystrophic benign coarse calcifications in each breast. Stable nodules and asymmetries in e ach breast. MM/[id number] IMPRESSION: BI-RADS: 2-Benign FOLLOW UP: 1 Year Follow-up
== END 2021-12-05 09:11 | disposition home or self-care (01) ==
LOC: RAD 09:11
PROVIDERS: PCP Internal Medicine; Visit Provider Internal Medicine
DX: Z85.3 Personal history of malignant neoplasm of breast (principal)
CPT/HCPCS: 77062

== ENCOUNTER 2022-10-30 15:48 | Outpatient (CLI) | payer MEDICARE, MEDICAID, SELFPAY ==
--- NOTE | 2022-10-30 15:58 | XR_ITS ---
WS: [id number] SCREENING DEXA SCAN Treater CLINICAL INFORMATION: ASYMPTOMATIC MENOPAUSAL STATE COMPARISON: None. FINDINGS: The L1-L4 bone mineral density measures 1.270 g/cm2. This corresponds to a T score score of 0.7 and Z score of 2.2. Left femoral neck bone mineral density measures 0.845 g/cm2. This corresponds to a T score of -1.3 an d Z score of 0.1. Right femoral neck bone mineral density measures 0.822 g/cm2. This corresponds to a T score -1.5of an d Z score of -0.1. Mean femoral neck bone mineral density measures 0.834 g/cm2. This corresponds to a T score of -1.4 an d Z score of 0.0. XR/XR DEXA axial skeleton* [id number] IMPRESSION: Normal bone mineralization lumbar spine. Osteopenia femoral necks. Patient's FRAX calculated 10 year probability for major osteoporotic fracture i s 14.6 % and osteoporotic hip fracture is 3.9%.
== END 2022-10-30 15:49 | disposition home or self-care (01) ==
PROVIDERS: PCP Internal Medicine; Visit Provider Nurse Practitioner Family
DX: Z13.820 Encounter for screening for osteoporosis (principal); Z78.0 Asymptomatic menopausal state; M85.852 Other specified disorders of bone density and structure, left thigh; M85.851 Other specified disorders of bone density and structure, right thigh
CPT/HCPCS: 77080

== ENCOUNTER → 2024-10-10 13:38 | Outpatient (BNVA) | payer MEDICARE, MEDICAID, SELFPAY | PROVIDERS: PCP Internal Medicine; Visit Provider Registered Nurse Neonatal Intensive Care | DX: R39.9 Unspecified symptoms and signs involving the genitourinary system (principal); R81 Glycosuria | CPT/HCPCS: 81000; 82962 ==

== ENCOUNTER 2024-11-07 15:33 | Inpatient (IN) | payer OTHER, MEDICAID, SELFPAY ==
[2024-11-07] VITALS (9 sets, daily range): BP systolic 131–168; BP diastolic 68–78; PULSE 76–101; RESP 16–19; TEMP 36.5–38.7; O2SAT 92–98
--- NOTE | 2024-11-07 16:06 | XRR_ITS ---
PROCEDURE INFORMATION: Exam: XR Chest Exam date and time: 11/07/2024 4:22 PM Age: 74 years old Clinical indication: Other: AMS TECHNIQUE: Imaging protocol: Radiologic exam of the chest. Views: 1 view. COMPARISON: CR XR chest 1V portable [id number] 09/13/2019 12:38 PM FINDINGS: Lungs: New airspace disease in the right lower lung zone. Scattered calcified granulomas bilaterally. Pleural spaces: Unremarkable. No pleural effusion. No pneumothorax. Heart/Mediastinum: Unremarkable. No cardiomegaly. Bones/joints: Unremarkable. XR/XR chest 1V portable [id number] IMPRESSION: New airspace disease in the right lower lung zone. Suspicious for pneumonia. Underlying mass can not be excluded. Short-term radiographic follow-up is recommended to assess resolution.
--- NOTE | 2024-11-07 16:18 | W.ED.AMS ---
Documented by User: KEDAR Irwin 11/07/24 17:22 HPI - Altered Mental Status General: Chief Complaint: General Medical Stated Complaint: difficult walking,talking,moving, ams Time Seen by Provider: 11/07/24 15:41 Source: patient and family Mode of arrival: wheelchair Limitations: altered mental status History of Present Illness: Patient is a 74-year-old male who presents to ED today along with her and daughter for concerns of weakness and altered mental status. Patient has a history of dementia so does have some degree of altered mental status at baseline. They feel over the past 3 days or so this has worsened. They feel like she is weak and has had a few close falls in her home. Daughter states she has been urinating on the floor which is abnormal. does report some degree of chronic urinary incontinence. She has not been running fevers. They deny any recent upper respiratory symptoms. She was recently treated for a urinary tract infection with Keflex and finished this antibiotic. Family states she has had a recent medication change and was taken off of her bupropion due to this elevating her blood pressure and was placed on escitalopram. No concern for drug or alcohol use. Her medications are administered by family. MD complaint: altered mental status and confusion Onset (ago): day(s) Timing confirmed by: spouse Severity: moderate Consistency of symptoms: Getting Worse Context: change in medication Associated symptoms: Reports no associated symptoms Related Data Home Medications ?Medication ?Instructions ?Recorded ?Confirmed metformin 1,000 mg tablet 1,000 mg PO BID 09/13/19 10/10/24 amlodipine 5 mg tablet 5 mg PO DAILY 10/10/24 10/10/24 bupropion HCl 75 mg tablet 75 mg PO DAILY 10/10/24 10/10/24 gabapentin 100 mg tablet 100 mg PO TID 10/10/24 10/10/24 losartan 25 mg tablet 25 mg PO DAILY 10/10/24 10/10/24 omeprazole 20 mg capsule,delayed 40 mg PO DAILY 10/10/24 10/10/24 release Previous Rx's ?Medication ?Instructions ?Recorded metoprolol tartrate 25 mg tablet 25 mg PO .COMPLEX #270 tabs 11/07/21 potassium chloride 8 mEq 8 meq PO DAILY #90 caps 11/07/21 capsule,extended release clopidogrel 75 mg tablet 75 mg PO DAILY #90 tabs 05/18/23 hydrochlorothiazide 25 mg tablet 25 mg PO DAILY #90 tabs 04/15/24 Allergies Allergy/AdvReac Type Severity Reaction Status Date / Time acetanilide Allergy ALGY-Hives Verified 10/10/24 12:33 amoxicillin Allergy ALGY-Hives Verified 10/10/24 12:33 ciprofloxacin Allergy ALGY-Hives Verified 10/10/24 12:33 codeine Allergy ALGY-Hives Verified 10/10/24 12:33 doxycycline Allergy ALGY-Hives Verified 10/10/24 12:33 Penicillins Allergy ALGY-Hives Verified 10/10/24 12:33 propoxyphene Allergy ALGY-Hives Verified 10/10/24 12:33 Sulfa (Sulfonamide Allergy ALGY-Hives Verified 10/10/24 12:33 Antibiotics) tetracycline Allergy ALGY-Hives Verified 10/10/24 12:33 Review of Systems General: Reports: ROS unobtainable due to medical condition, ROS unobtainable due to mental status and Other (answers come primarily from /daughter) Const: Denies: fever(s) Resp: Denies: productive cough, non-productive cough or chest congestion GI: Denies: vomiting or diarrhea : Reports: urinary incontinence Skin/Breast: Denies: rash Neuro: Reports: headache(s), frequent falls, confusion and behavioral changes; Denies: Slurred speech present or seizure-like activity PFSH ED PFSH: Medical History (Updated 11/07/24 @ 18:06 by Antione Summers DO) Statin intolerance Chronic diastolic CHF (congestive heart failure) -has known hx of chronic diastolic CHF, no acute exacerbation currently -Echo (2017): EF=60%, G1DD; repeat ordered given hypertensive urgency and NSTEMI CKD (chronic kidney disease) stage 2, GFR 60-89 ml/min -has BRENT on CKD stage 2, baseline Cr wnl; BRENT resolved -likely secondary to dehydration given poor oral intake, diarrhea, N/V -continue to monitor renal function, avoid nephrotoxins -IVF hydration -noted evidence of bilateral perinephric stranding on imaging -has Bustillos catheter; continue to monitor urine output, assess daily for removal Infiltrating ductal carcinoma of right breast s/p chemotherapy and adjuvant hormonal therapy x 4 yrs with Arimidex COPD (chronic obstructive pulmonary disease) -has documented hx of COPD, prior smoker, not oxygen dependent -no evidence of acute exacerbation currently -supplemental oxygen as needed -continue to monitor respiratory status Diabetes mellitus type 2 in obese -has hx of NIDDM type II -hypoglycemia precautions, accuchecks, ISS -A1c at goal-7.1 -noted urine ketones, significant hyperglycemia, increased anion gap though I suspect dehydration to be more of an element here than DKA CAD (coronary artery disease) -has prior hx of CAD with stenting of LAD done in 03/2007 -had previously followed up with cardiology Hyperlipidemia -lipid panel noted -on statin HTN (hypertension) Surgical History History of breast lump/mass excision R Hx of tonsillectomy History of salpingo-oophorectomy R H/O: hysterectomy History of cholecystectomy H/O hernia repair History of coronary artery stent placement Family History Father Cancer colon cancer CAD (coronary artery disease) Brother CAD (coronary artery disease) Social History Smoking and tobacco/nicotine status: never used tobacco/nicotine Quit status (tobacco/nicotine): has quit using Year quit tobacco: 30 yrs ago Alcohol intake: never Substance/Drug Use: never Household members: spouse and children Marital status: Physical Exam Const: COMMON NORMALS: no acute distress, no limitations, alert and well nourished EXAM LIMITATIONS: altered mental status (acute on chronic) GENERAL APPEARANCE: cooperative ORIENTATION/CONSCIOUSNESS: Yes awake, Yes oriented to person and Yes oriented to place HENMT: COMMON NORMALS: normocephalic and atraumatic HEAD & SCALP: normal to inspection, normocephalic and atraumatic FACE & SINUS: normal facial exam and face symmetric Neck/C-Spine: COMMON NORMALS: full ROM, no lymphadenopathy, supple and no meningeal signs Chest: COMMONS NORMALS: normal inspection of the chest Resp: COMMON NORMALS: normal respiratory effort AUSCULTATION: rhonchi right lower Cardio: COMMON NORMALS: regular rate and regular rhythm RATE: regular rate RHYTHM: regular rhythm GI: COMMON NORMALS: Normal to inspection, nondistended, normoactive bowel sounds present, Soft to palpation, non-tender, No hepatosplenomegaly present and no masses PALPATION: Yes Soft to palpation and Yes No hepatosplenomegaly present : COMMON NORMALS: Yes no CVA tenderness BLADDER/KIDNEY EXAM: Yes no CVA tenderness Back/Pelvis: COMMON NORMALS: no CVA tenderness and thoracic and lumbar spine normal to inspection Extremity: COMMON NORMALS: normal to inspection, capillary refill normal, no clubbing, cyanosis or edema, no calf tenderness and no pedal edema GENERAL: Yes normal exam except as noted Neuro: DEE COMA SCALE: document GCS findings Carmel coma scale eye opening: Spontaneous Carmel coma scale verbal response: Orientated Carmel coma scale motor response: Obey commands Dee coma scale total score: 15 COMMON NORMALS: moves all extremities, no focal motor deficits and no sensory deficits noted SENSORIUM/ORIENTATION: Yes alert, Yes oriented to person and Yes oriented to place MENINGEAL SIGNS: Yes no meningeal signs SPEECH: speech normal GAIT: Yes Unable to assess gait Skin: COMMON NORMALS: no rashes or lesions noted GENERAL SKIN EXAM: no rashes or lesions noted Course Consultations: Consultation #1: Dr. Summers-admits to hospital Vital Signs: Vital signs: Vital Signs Temperature 101.7 F H 11/07/24 18:37 Pulse Rate 97 11/07/24 18:37 Respiratory Rate 19 H 11/07/24 18:37 Blood Pressure 139/77 11/07/24 18:37 Pulse Oximetry 95 11/07/24 18:37 Oxygen Delivery Me thod Room Air 11/07/24 17:57 MDM - Altered Mental Status Medical Decision Making Patient is a 74-year-old female here for worsening confusion and weakness over the past 3 days or so. She does have baseline dementia. Vital signs are stable. Her blood work with no comparisons since 2019. She does have some mild microcytic anemia. Mild hypokalemia at 3.0. Mag pending. Appears to have acute kidney injury with elevations to her BUN/Cr at 36/2.0. CXR showing a right lower lung pneumonia. She will be placed on IV antibiotics for this. Will admit to the hospital as her elderly can no longer continue to care for her at home. Medical Records I reviewed the patient's medical records. Lab Data I reviewed the patient's lab results. 11/07/24 16:28 11/07/24 16:28 Radiology Impressions Chest X-Ray 11/07/24 16:06 IMPRESSION: New airspace disease in the right lower lung zone. Suspicious for pneumonia. Underlying mass can not be excluded. Short-term radiographic follow-up is recommended to assess resolution. Head CT 11/07/24 16:20 IMPRESSION: 1. Cerebral atrophy and chronic cerebral microvascular disease. 2. No evidence of acute intracranial process. Laboratory Results WBC 10.42 10^3/uL (3.29-11.43) 11/07/24 16: RBC 3.96 10^6/uL (3.85-5.65) 11/07/24 16: Hgb 10.10 g/dL (11.27-16.99) L 11/07/24 16:28 Hct 32.8 % (36-47) L 11/07/24 16: MCV 82.8 fl (85-98) L 11/07/24 16: MCH 25.5 pg (27-33) L 11/07/24 16: MCHC 30.8 g/dL (30-55) 11/07/24 16: RDW 14.6 % (12.1-15.1) 11/07/24 16: Plt Count 354 10^3/cmm (157-399) 11/07/24 16: MPV 9.1 fL (7.4-10.4) 11/07/24 16: Neut % (Auto) 85.7 % 11/07/24 16:28 Lymph % (Auto) 4.7 % 11/07/24 16: [place] % (Auto) 8.7 % 11/07/24 16:28 Eos % (Auto) 0.1 % 11/07/24 16: Baso % (Auto) 0.2 % 11/07/24 16: Neut # (Auto) 8.93 10^3/uL (1.8-7.7) H 11/07/24 16:28 Lymph # (Auto) 0.5 10^3/uL (0.8-4.8) L 11/07/24 16:28 [place] # (Auto) 0.9 10^3/uL (0.2-0.9) 11/07/24 16:28 Eos # (Auto) 0.0 10^3/uL (0.0-0.8) 11/07/24 16:28 Baso # (Auto) 0.0 10^3/uL (0.0-0.1) 11/07/24 16:28 Nucleated RBC % (auto) 0 % 11/07/24 16:28 Nucleated RBCs # 0.0 /100WBC 11/07/24 16:28 Sodium 136 mmol/L (136-145) 11/07/24 16:28 Potassium 3.0 mmol/L (3.5-5.1) L 11/07/24 16:28 Chloride 97 mmol/L (98-107) L 11/07/24 16:28 Carbon Dioxide 22 mmol/L (22-29) 11/07/24 16:28 Anion Gap 20.0 (5-19) H 11/07/24 16:28 BUN 36 mg/dL (8-23) H 11/07/24 16:28 Creatinine 2.0 mg/dL (0.5-0.9) H 11/07/24 16:28 GFR Calculation Not Reportable 11/07/24 16:28 Glucose 103 mg/dL (65-115) 11/07/24 16:28 Calculated Osmolality 291 mOsm/kg (285-295) 11/07/24 16:28 Lactic Acid 1.4 mmol/L (0.5-2.2) 11/07/24 16:28 Calcium 8.8 mg/dL (8.5-10.5) 11/07/24 16:28 Magnesium 2.3 mg/dL (1.7-2.3) 11/07/24 16:28 Total Bilirubin 0.3 mg/dL (0.15-1.2) 11/07/24 16:28 AST 39 U/L (0-32) H 11/07/24 16:28 ALT 22 U/L (0-33) 11/07/24 16:28 Alkaline Phosphatase 102 U/L (35-105) 11/07/24 16:28 Total Protein 7.0 g/dL (6.6-8.7) 11/07/24 16:28 Albumin 3.1 g/dL (3.5-5.2) L 11/07/24 16:28 Globulin 3.9 g/dL (1.3-4.6) 11/07/24 16:28 Procalcitonin 0.49 ng/mL (0-0.5) 11/07/24 16:28 Urine Color Yellow (Yellow) 11/07/24 16:30 Urine Appearance Clear (CLEAR) 11/07/24 16:30 Urine pH 5.5 (5-7) 11/07/24 16:30 Ur Specific Palmer 1.014 (1.005-1.030) 11/07/24 16:30 Urine Protein 3+ (Negative) A 11/07/24 16:30 Urine Glucose (UA) Negative (Normal) 11/07/24 16:30 Urine Ketones Trace (Negative) 11/07/24 16:30 Urine Blood Trace (Negative) A 11/07/24 16:30 Urine Nitrate Negative (Negative) 11/07/24 16:30 Urine Bilirubin Negative (Negative) 11/07/24 16:30 Urine Urobilinogen 1.0 mg/dL (Negative) 11/07/24 16:30 Ur Leukocyte Esterase Negative (Negative) 11/07/24 16:30 Urine RBC 3-5 /hpf (0-2) 11/07/24 16:30 Urine WBC 0-5 /hpf (0-5) 11/07/24 16:30 Ur Squamous Epith Cells 0-5 /hpf (0-5) 11/07/24 16:30 Ur Transition Epith Cell 5-10 /hpf 11/07/24 16:30 Ur Renal Epithelial Cell 0-4 /hpf 11/07/24 16:30 Amorphous Sediment 1+ /hpf 11/07/24 16:30 Urine Bacteria None seen /hpf (NONE) 11/07/24 16:30 Hyaline Casts 6.61 /lpf 11/07/24 16:30 Fine Granular Casts 5-10 /lpf H 11/07/24 16:30 All radiology interpretation(s) finalized by discharge Discharge Plan Discharge Patient Disposition: Admitted As Inpatient Admit Provider: Antione Summers Clinical Impression: BRENT (acute kidney injury) Right lower lobe pneumonia Qualifiers: Pneumonia type: due to unspecified organism Qualified Code(s): J18.9 - Pneumonia, unspecified organism Condition: Stable Coding Level of Care Code ED [facility] Adviser for [facility]g Fwd Documented by User: Jas Mullen DO 11/07/24 18:58 HPI - Altered Mental Status General: Chief Complaint: General Medical Stated Complaint: difficult walking,talking,moving, ams Time Seen by Provider: 11/07/24 15:41 Related Data Home Medications ?Medication ?Instructions ?Recorded ?Confirmed metformin 1,000 mg tablet 1,000 mg PO BID 09/13/19 10/10/24 amlodipine 5 mg tablet 5 mg PO DAILY 10/10/24 10/10/24 bupropion HCl 75 mg tablet 75 mg PO DAILY 10/10/24 10/10/24 gabapentin 100 mg tablet 100 mg PO TID 10/10/24 10/10/24 losartan 25 mg tablet 25 mg PO DAILY 10/10/24 10/10/24 omeprazole 20 mg capsule,delayed 40 mg PO DAILY 10/10/24 10/10/24 release Previous Rx's ?Medication ?Instructions ?Recorded metoprolol tartrate 25 mg tablet 25 mg PO .COMPLEX #270 tabs 11/07/21 potassium chloride 8 mEq 8 meq PO DAILY #90 caps 11/07/21 capsule,extended release clopidogrel 75 mg tablet 75 mg PO DAILY #90 tabs 05/18/23 hydrochlorothiazide 25 mg tablet 25 mg PO DAILY #90 tabs 04/15/24 Allergies Allergy/AdvReac Type Severity Reaction Status Date / Time acetanilide Allergy ALGY-Hives Verified 10/10/24 12:33 amoxicillin Allergy ALGY-Hives Verified 10/10/24 12:33 ciprofloxacin Allergy ALGY-Hives Verified 10/10/24 12:33 codeine Allergy ALGY-Hives Verified 10/10/24 12:33 doxycycline Allergy ALGY-Hives Verified 10/10/24 12:33 Penicillins Allergy ALGY-Hives Verified 10/10/24 12:33 propoxyphene Allergy ALGY-Hives Verified 10/10/24 12:33 Sulfa (Sulfonamide Allergy ALGY-Hives Verified 10/10/24 12:33 Antibiotics) tetracycline Allergy ALGY-Hives Verified 10/10/24 12:33 PFSH ED PFSH: Medical History (Updated 11/07/24 @ 18:06 by Antione Summers DO) Statin intolerance Chronic diastolic CHF (congestive heart failure) -has known hx of chronic diastolic CHF, no acute exacerbation currently -Echo (2017): EF=60%, G1DD; repeat ordered given hypertensive urgency and NSTEMI CKD (chronic kidney disease) stage 2, GFR 60-89 ml/min -has BRENT on CKD stage 2, baseline Cr wnl; BRENT resolved -likely secondary to dehydration given poor oral intake, diarrhea, N/V -continue to monitor renal function, avoid nephrotoxins -IVF hydration -noted evidence of bilateral perinephric stranding on imaging -has Bustillos catheter; continue to monitor urine output, assess daily for removal Infiltrating ductal carcinoma of right breast s/p chemotherapy and adjuvant hormonal therapy x 4 yrs with Arimidex COPD (chronic obstructive pulmonary disease) -has documented hx of COPD, prior smoker, not oxygen dependent -no evidence of acute exacerbation currently -supplemental oxygen as needed -continue to monitor respiratory status Diabetes mellitus type 2 in obese -has hx of NIDDM type II -hypoglycemia precautions, accuchecks, ISS -A1c at goal-7.1 -noted urine ketones, significant hyperglycemia, increased anion gap though I suspect dehydration to be more of an element here than DKA CAD (coronary artery disease) -has prior hx of CAD with stenting of LAD done in 03/2007 -had previously followed up with cardiology Hyperlipidemia -lipid panel noted -on statin HTN (hypertension) Surgical History History of breast lump/mass excision R Hx of tonsillectomy History of salpingo-oophorectomy R H/O: hysterectomy History of cholecystectomy H/O hernia repair History of coronary artery stent placement Family History Father Cancer colon cancer CAD (coronary artery disease) Brother CAD (coronary artery disease) Social History Smoking and tobacco/nicotine status: never used tobacco/nicotine Quit status (tobacco/nicotine): has quit using Year quit tobacco: 30 yrs ago Alcohol intake: never Substance/Drug Use: never Household members: spouse and children Marital status: Physical Exam Neuro: DEE COMA SCALE: document GCS findings Carmel coma scale total score: 15 Course Vital Signs: Vital signs: Vital Signs Temperature 101.7 F H 11/07/24 18:37 Pulse Rate 97 11/07/24 18:37 Respiratory Rate 19 H 11/07/24 18:37 Blood Pressure 139/77 11/07/24 18:37 Pulse Oximetry 95 11/07/24 18:37 Oxygen Delivery Me thod Room Air 11/07/24 17:57 MDM - Altered Mental Status Medical Decision Making Patient is a 74-year-old female here for worsening confusion and weakness over the past 3 days or so. She does have baseline dementia. Vital signs are stable. Her blood work with no comparisons since 2019. She does have some mild microcytic anemia. Mild hypokalemia at 3.0. Mag pending. Appears to have acute kidney injury with elevations to her BUN/Cr at 36/2.0. CXR showing a right lower lung pneumonia. She will be placed on IV antibiotics for this. Will admit to the hospital as her elderly can no longer continue to care for her at home. Chart reviewed and patient discussed with midlevel. Agree with assessment and plan. Lab Data 11/07/24 16:28 11/07/24 16:28 Radiology Impressions Chest X-Ray 11/07/24 16:06 IMPRESSION: New airspace disease in the right lower lung zone. Suspicious for pneumonia. Underlying mass can not be excluded. Short-term radiographic follow-up is recommended to assess resolution. Head CT 11/07/24 16:20 IMPRESSION: 1. Cerebral atrophy and chronic cerebral microvascular disease. 2. No evidence of acute intracranial process. Laboratory Results WBC 10.42 10^3/uL (3.29-11.43) 11/07/24 16: RBC 3.96 10^6/uL (3.85-5.65) 11/07/24 16:28 Hgb 10.10 g/dL (11.27-16.99) L 11/07/24 16: Hct 32.8 % (36-47) L 11/07/24 16: MCV 82.8 fl (85-98) L 11/07/24 16: MCH 25.5 pg (27-33) L 11/07/24 16: MCHC 30.8 g/dL (30-55) 11/07/24 16: RDW 14.6 % (12.1-15.1) 11/07/24 16:28 Plt Count 354 10^3/cmm (157-399) 11/07/24 16: MPV 9.1 fL (7.4-10.4) 11/07/24 16: Neut % (Auto) 85.7 % 11/07/24 16: Lymph % (Auto) 4.7 % 11/07/24 16: [place] % (Auto) 8.7 % 11/07/24 16: Eos % (Auto) 0.1 % 11/07/24 16:28 Baso % (Auto) 0.2 % 11/07/24 16: Neut # (Auto) 8.93 10^3/uL (1.8-7.7) H 11/07/24 16: Lymph # (Auto) 0.5 10^3/uL (0.8-4.8) L 11/07/24 16: [place] # (Auto) 0.9 10^3/uL (0.2-0.9) 11/07/24 16: Eos # (Auto) 0.0 10^3/uL (0.0-0.8) 11/07/24 16: Baso # (Auto) 0.0 10^3/uL (0.0-0.1) 11/07/24 16: Nucleated RBC % (auto) 0 % 11/07/24: Nucleated RBCs # 0.0 /100WBC 11/07/24 16: Sodium 136 mmol/L (136-145) 11/07/24 16: Potassium 3.0 mmol/L (3.5-5.1) L 11/07/24 16: Chloride 97 mmol/L (98-107) L 11/07/24 16: Carbon Dioxide 22 mmol/L (22-29) 11/07/24 16: Anion Gap 20.0 (5-19) H 11/07/24 16:28 BUN 36 mg/dL (8-23) H 11/07/24 16:28 Creatinine 2.0 mg/dL (0.5-0.9) H 11/07/24 16:28 GFR Calculation Not Reportable 11/07/24 16: Glucose 103 mg/dL (65-115) 11/07/24 16:28 Calculated Osmolality 291 mOsm/kg (285-295) 11/07/24 16:28 Lactic Acid 1.4 mmol/L (0.5-2.2) 11/07/24 16:28 Calcium 8.8 mg/dL (8.5-10.5) 11/07/24 16: Magnesium 2.3 mg/dL (1.7-2.3) 11/07/24 16: Total Bilirubin 0.3 mg/dL (0.15-1.2) 11/07/24 16: AST 39 U/L (0-32) H 11/07/24 16: ALT 22 U/L (0-33) 11/07/24 16: Alkaline Phosphatase 102 U/L (35-105) 11/07/24 16: Total Protein 7.0 g/dL (6.6-8.7) 11/07/24 16: Albumin 3.1 g/dL (3.5-5.2) L 11/07/24 16: Globulin 3.9 g/dL (1.3-4.6) 11/07/24 16: Procalcitonin 0.49 ng/mL (0-0.5) 11/07/24 16: Urine Color Yellow (Yellow) 11/07/24 16: Urine Appearance Clear (CLEAR) 11/07/24 16: Urine pH 5.5 (5-7) 11/07/24 16: Ur Specific Palmer 1.014 (1.005-1.030) 11/07/24 16:30 Urine Protein 3+ (Negative) A 11/07/24 16: Urine Glucose (UA) Negative (Normal) 11/07/24 16:30 Urine Ketones Trace (Negative) 11/07/24 16: Urine Blood Trace (Negative) A 11/07/24 16: Urine Nitrate Negative (Negative) 11/07/24 16: Urine Bilirubin Negative (Negative) 11/07/24 16: Urine Urobilinogen 1.0 mg/dL (Negative) 11/07/24 16:30 Ur Leukocyte Esterase Negative (Negative) 11/07/24 16:30 Urine RBC 3-5 /hpf (0-2) 11/07/24 16:30 Urine WBC 0-5 /hpf (0-5) 11/07/24 16:30 Ur Squamous Epith Cells 0-5 /hpf (0-5) 11/07/24 16:30 Ur Transition Epith Cell 5-10 /hpf 11/07/24 16:30 Ur Renal Epithelial Cell 0-4 /hpf 11/07/24 16:30 Amorphous Sediment 1+ /hpf 11/07/24 16:30 Urine Bacteria None seen /hpf (NONE) 11/07/24 16:30 Hyaline Casts 6.61 /lpf 11/07/24 16:30 Fine Granular Casts 5-10 /lpf H 11/07/24 16:30 Discharge Plan Discharge Patient Disposition: Admitted As Inpatient Admit Provider: Antione Summers Clinical Impression: BRENT (acute kidney injury) Right lower lobe pneumonia Qualifiers: Pneumonia type: due to unspecified organism Qualified Code(s): J18.9 - Pneumonia, unspecified organism Condition: Stable Coding Level of Care Code ED [facility] Ad[facility] for Alexi Hernandez
--- NOTE | 2024-11-07 16:20 | CTR_ITS ---
PROCEDURE INFORMATION: Exam: CT Head Without Contrast Exam date and time: 11/07/2024 4:47 PM Age: 74 years old Clinical indication: Altered mental status/memory loss; Confusion or disorientation; Additional info: AMS TECHNIQUE: Imaging protocol: Computed tomography of the head without contrast. Radiation optimization: All CT scans at this facility use at least one of these dose optimization techniques: automated exposure control; mA and/or kV adjustment per patient size (includes targeted exams where dose is matched to clinical indication); or iterative reconstruction. COMPARISON: CT head wo con* [id number] 09/13/2019 3:56 PM RADIATION DOSE METRICS: Total DLP (mGy-cm): 1077.75 FINDINGS: Brain: There is generalized brain atrophy. Aguilar-white differentiation is preserved. Amorphous lucency is present in the supratentorial white matter bilaterally. No evidence of intracranial hemorrhage or mass effect. Cerebral ventricles: No ventriculomegaly. Paranasal sinuses: Visualized sinuses are unremarkable. No fluid levels. Mastoid air cells: Visualized mastoid air cells are well aerated. Bones: Unremarkable. No acute fracture. Soft tissues: Unremarkable. CT/CT head wo con* [id number] IMPRESSION: 1. Cerebral atrophy and chronic cerebral microvascular disease. 2. No evidence of acute intracranial process.
[2024-11-07 16:30] LABS: Basophils % 0.2 %; Eosinophils % 0.1 %; Hematocrit 32.8 % (36-47); Lymphocytes # 0.5 10^3/uL (0.8-4.8); Lymphocytes % 4.7 %; Mean Corpuscular HGB Conc 30.8 g/dL (30-55); Mean Corpuscular Hemoglobin 25.5 pg (27-33); Mean Corpuscular Volume 82.8 fl (85-98); Mean Platelet Volume 9.1 fL (7.4-10.4); Monocytes # 0.9 10^3/uL (0.2-0.9); Monocytes % 8.7 %; Neutrophils # 8.93 10^3/uL (1.8-7.7); Neutrophils % 85.7 %; Nucleated Red Blood Cells % 0 %; Platelet Count 354 10^3/cmm (157-399); Red Blood Count 3.96 10^6/uL (3.85-5.65); Red Cell Distribution Width 14.6 % (12.1-15.1); White Blood Count 10.42 10^3/uL (3.29-11.43)
[2024-11-07 16:47] LABS: Bilirubin Urine Negative (Negative); Blood Urine Trace (Negative); Glucose Urine UA Negative (Normal); Ketones Urine Trace (Negative); Leukocyte Esterase Urine Negative (Negative); Nitrate Urine Negative (Negative); Protein Urine 3+ (Negative); Specific Gravity, Urine 1.014 (1.005-1.030); Urine Appearance Clear (CLEAR); Urine Color Yellow (Yellow); pH Urine 5.5 (5-7)
[2024-11-07 16:50] LABS: Alanine Aminotransferase 22 U/L (0-33); Albumin Level 3.1 g/dL (3.5-5.2); Alkaline Phosphatase 102 U/L (35-105); Aspartate Amino Transferase 39 U/L (0-32); Blood Urea Nitrogen 36 mg/dL (8-23); Calcium 8.8 mg/dL (8.5-10.5); Carbon Dioxide 22 mmol/L (22-29); Chloride 97 mmol/L (98-107); Creatinine Clr Calc Pharmacy 23.3589; Globulin 3.9 g/dL (1.3-4.6); Glucose 103 mg/dL (65-115); Osmolality Calculated 291 mOsm/kg (285-295); Sodium 136 mmol/L (136-145); Total Bilirubin 0.3 mg/dL (0.15-1.2)
[2024-11-07 16:52] LABS: Add Urine Microscopic? YES; Bacteria Urine None Seen /hpf; Hyaline Casts Urine 6.61 /lpf; Squamous Epithelial Cell Urine 0-5 /hpf (0-5); WBC Urine 0-5 /hpf (0-5)
[2024-11-07 17:11] LABS: UA Slide Review UA Slide Review Perf
[2024-11-07 17:13] LABS: Add Urine Culture? No; Amorphous Sediment Urine 1+ /hpf; Renal Epithelial Cells Urine 0-4 /hpf
[2024-11-07] MEDS: potassium chloride oral liq 20 mEq/15 mL UDC 40 MEQ PO (17:21)
[2024-11-07 17:22] LABS: Lactic Sepsis W/Reflex 1.4 mmol/L (0.5-2.2)
[2024-11-07] MEDS: AZITHROMYCIN ADD-Vantage 500 MG in 0.9% NaCl ADD-Vantage 250 ML 250 MG IV (17:23)
[2024-11-07] MEDS: cefTRIAXone 1,000 mg SDV 1000 MG IVP (17:23)
[2024-11-07 17:28] LABS: Procalcitonin 0.49 ng/mL (0-0.5)
[2024-11-07] MEDS: sodium chloride 0.9% 1,000 ML 999 ML IV (17:29)
[2024-11-07 17:49] LABS: Magnesium 2.3 mg/dL (1.7-2.3)
--- NOTE | 2024-11-07 17:52 | PM.HP ---
Providers/Chief Complaint Admitting Physician: Antione Summers DO Primary Care Provider: Jake Kilpatrick DO Chief Complaint: difficult walking,talking,moving, ams History of Present Illness Araceli Duke is a 74 year old female with dementia, diabetes, hypertension presents with increased confusion and altered mental status per the family. Family reports that over the last 3 days the patient's mental status has continued to worsen and she is more weak and had close falls at home. The patient actually has urinated on the floor. They deny any fevers or recent upper respiratory symptoms. She was however treated for a UTI with Keflex and just recently finished this antibiotic. The other recent medication change is discontinuing BuSpar due to elevated blood pressure. She was placed on Lexapro. There was no weaning of the BuSpar. In the ER she is found to have a right lower lobe pneumonia versus mass. She does not have an elevated white count. But she is tachycardic and has a cough. She will be admitted for pneumonia and altered mental status. Review of Systems Const: Denies: fever(s) or chills Eyes: Denies: change in vision ENMT: Denies: throat pain or nasal congestion Card: Denies: chest pain or palpitations Resp: Denies: dyspnea or productive cough GI: Denies: abdominal pain, nausea, vomiting or change in stool character : Reports: urinary incontinence; Denies: dysuria Musc: Denies: back pain or extremity pain Skin/Breast: Denies: rash or lesions Neuro: Reports: difficulty walking and behavioral changes; Denies: headache(s) or dizziness Sebas/Lymph: Denies: easy bruising or easy bleeding Medications/Allergies Home Medications ?Medication ?Instructions ?Recorded ?Confirmed ?Last Taken ?Type metformin 1,000 mg tablet 1,000 mg PO BID 09/13/19 10/10/24 Unknown History metoprolol tartrate 25 mg tablet 25 mg PO .COMPLEX #270 tabs 11/07/21 10/10/24 Unknown Rx potassium chloride 8 mEq 8 meq PO DAILY #90 caps 11/07/21 10/10/24 Unknown Rx capsule,extended release clopidogrel 75 mg tablet 75 mg PO DAILY #90 tabs 05/18/23 10/10/24 Unknown Rx hydrochlorothiazide 25 mg tablet 25 mg PO DAILY #90 tabs 04/15/24 10/10/24 Unknown Rx amlodipine 5 mg tablet 5 mg PO DAILY 10/10/24 10/10/24 Unknown History bupropion HCl 75 mg tablet 75 mg PO DAILY 10/10/24 10/10/24 Unknown History gabapentin 100 mg tablet 100 mg PO TID 10/10/24 10/10/24 Unknown History losartan 25 mg tablet 25 mg PO DAILY 10/10/24 10/10/24 Unknown History omeprazole 20 mg capsule,delayed 40 mg PO DAILY 10/10/24 10/10/24 Unknown History release Allergies Allergy/AdvReac Type Severity Reaction Status Date / Time acetanilide Allergy ALGY-Hives Verified 10/10/24 12:33 amoxicillin Allergy ALGY-Hives Verified 10/10/24 12:33 ciprofloxacin Allergy ALGY-Hives Verified 10/10/24 12:33 codeine Allergy ALGY-Hives Verified 10/10/24 12:33 doxycycline Allergy ALGY-Hives Verified 10/10/24 12:33 Penicillins Allergy ALGY-Hives Verified 10/10/24 12:33 propoxyphene Allergy ALGY-Hives Verified 10/10/24 12:33 Sulfa (Sulfonamide Allergy ALGY-Hives Verified 10/10/24 12:33 Antibiotics) tetracycline Allergy ALGY-Hives Verified 10/10/24 12:33 PFSH Acute PFSH: Medical History (Updated 11/07/24 @ 18:06 by Antione Summers DO) Statin intolerance Chronic diastolic CHF (congestive heart failure) -has known hx of chronic diastolic CHF, no acute exacerbation currently -Echo (2017): EF=60%, G1DD; repeat ordered given hypertensive urgency and NSTEMI CKD (chronic kidney disease) stage 2, GFR 60-89 ml/min -has BRENT on CKD stage 2, baseline Cr wnl; BRENT resolved -likely secondary to dehydration given poor oral intake, diarrhea, N/V -continue to monitor renal function, avoid nephrotoxins -IVF hydration -noted evidence of bilateral perinephric stranding on imaging -has Bustillos catheter; continue to monitor urine output, assess daily for removal Infiltrating ductal carcinoma of right breast s/p chemotherapy and adjuvant hormonal therapy x 4 yrs with Arimidex COPD (chronic obstructive pulmonary disease) -has documented hx of COPD, prior smoker, not oxygen dependent -no evidence of acute exacerbation currently -supplemental oxygen as needed -continue to monitor respiratory status Diabetes mellitus type 2 in obese -has hx of NIDDM type II -hypoglycemia precautions, accuchecks, ISS -A1c at goal-7.1 -noted urine ketones, significant hyperglycemia, increased anion gap though I suspect dehydration to be more of an element here than DKA CAD (coronary artery disease) -has prior hx of CAD with stenting of LAD done in 03/2007 -had previously followed up with cardiology Hyperlipidemia -lipid panel noted -on statin HTN (hypertension) Surgical History History of breast lump/mass excision R Hx of tonsillectomy History of salpingo-oophorectomy R H/O: hysterectomy History of cholecystectomy H/O hernia repair History of coronary artery stent placement Family History Father Cancer colon cancer CAD (coronary artery disease) Brother CAD (coronary artery disease) Social History Smoking and tobacco/nicotine status: never used tobacco/nicotine Quit status (tobacco/nicotine): has quit using Year quit tobacco: 30 yrs ago Alcohol intake: never Substance/Drug Use: never Household members: spouse and children Marital status: Vitals/I&O/Wt Last Vital Signs Temp 99.0 F 11/07/24 15:52 Pulse 76 11/07/24 17:44 Resp 16 11/07/24 15:52 BP 161/76 11/07/24 17:44 Pulse Ox 98 11/07/24 17:44 O2 Del Method Room Air 11/07/24 16:35 Weight last 48 hrs Weight 81.647 kg Physical Exam Narrative: Patient is alert oriented to self and place and family. She has a nonfocal exam HEENT head is normocephalic atraumatic pupils equal round reactive to light and accommodation extraocular muscles intact mucous membranes are moist and pink without lesions or exudates. Neck is supple no JVD carotid bruits or lymphadenopaty Heart tachycardic no loud murmurs Lungs diminished in the right lower lung field otherwise clear no wheezes rales or rhonchi Abdomen soft nontender nondistended positive bowel sounds no hepatosplenomegaly Extremities no clubbing cyanosis or edema Skin no rashes or lesions noted Psych mood and affect is appropriate given dementia and likely component of delirium due to infection Back no CVA tenderness. Mild thoracic kyphosis noted Data 11/07/24 16:28 11/07/24 16:28 CXR: My impression: Right lower lower lung airspace disease with fluid in the fissure Radiologist's impression: IMPRESSION: New airspace disease in the right lower lung zone. Suspicious for pneumonia. Underlying mass can not be excluded. Short-term radiographic follow-up is recommended to assess resolution. CT Head: My impression: Moderate to severe cerebral atrophy Severe chronic cerebral microvascular disease Radiologist's impression: IMPRESSION: 1. Cerebral atrophy and chronic cerebral microvascular disease. 2. No evidence of acute intracranial process. A&P Assessment and plan (1) Right lower lobe pneumonia: Admit to [facility] Continue Rocephin azithromycin Nebs as needed Oxygen 2 L and titrate for O2 sat greater than 92% (2) BRENT (acute kidney injury): Last BUN/creatinine done in 2019 which were normal. Today she is 36/2.0. Will hydrate as it appears she has some prerenal azotemia (3) Chronic diastolic CHF (congestive heart failure): Will hydrate overnight being aware of history of CHF (4) COPD (chronic obstructive pulmonary disease): Patient with cough while I was at bedside that this was nonproductive I do not see that she takes any inhalers for this disease (5) Diabetes mellitus type 2 in obese: Hold metformin and will use sliding scale if indicated (6) CAD (coronary artery disease): (7) HTN (hypertension): Continue losartan hydrochlorothiazide alone and metoprolol if indicated (8) Dementia: Discussed with family that may patient's dementia may worsen in the form of delirium due to being hospitalized (9) DNR (do not resuscitate) discussion: states they do not have a living will regarding their health care. While initially they said I want everything done. When I explained a catastrophic event of not being able to breathe and requiring the ventilator as well as no heartbeat requiring CPR and heart shocking they agreed with DO NOT RESUSCITATE or in this hospital allow natural . PDMP PDMP Reviewed: Not Reviewed Attestations Medical Necessity Statement*: Patient with altered mental status and a new pneumonia will require IV antibiotics oxygen nebulizers and continuous monitoring she will require greater than 2 midnight stay for this condition Coding Level of Care Code Acute Code for [facility] Fwd Diagnoses Right lower lobe pneumonia J18.9 Pneumonia type: due to unspecified organism BRENT (acute kidney injury) N17.9 Chronic diastolic CHF (congestive heart failure) I50.32 Chronic obstructive pulmonary disease, unspecified COPD type J44.9 COPD type: unspecified COPD Diabetes mellitus type 2 in obese E11.69; E66.9 Coronary artery disease involving [place] coronary artery of [place] heart, angina presence unspecified I25.10 Coronary Disease-Associated Artery/Lesion type: [place] artery [place] vs. transplanted heart: [place] heart Associated angina: angina presence unspecified Essential hypertension I10 Hypertension type: essential hypertension Moderate dementia without behavioral disturbance, psychotic disturbance, mood disturbance, or anxiety, unspecified dementia type F03.B0 Dementia type: unspecified type Dementia severity: moderate Dementia behavioral or psychological symptom: without behavioral, psychotic, or mood disturbance or anxiety DNR (do not resuscitate) discussion Z71.89
[2024-11-07] MEDS: sodium chloride 0.9% 1,000 ML 125 ML IV ×2 (18:03→22:48)
[2024-11-07] MEDS: heparin 5,000 unit/mL INJ 1 mL 5000 UNIT SUBCUT (18:05)
[2024-11-07] MEDS: docusate sodium 100 mg Capsule PO (18:06)
[2024-11-07] MEDS: ipratropium-albuterol 3 mL Neb INHALATION ×2 (19:11→23:23)
[2024-11-07] MEDS: ibuprofen 200 mg Tablet 400 MG PO (23:31)
[2024-11-08] VITALS (9 sets, daily range): BP systolic 113–129; BP diastolic 65–77; PULSE 76–116; RESP 15–18; TEMP 36.7–36.9; O2SAT 92–97
[2024-11-08 05:09] LABS: Basophils % 0.4 %; Eosinophils % 0.1 %; Lymphocytes # 0.8 10^3/uL (0.8-4.8); Lymphocytes % 11.6 %; Mean Corpuscular HGB Conc 30.3 g/dL (30-55); Mean Corpuscular Hemoglobin 25.9 pg (27-33); Mean Corpuscular Volume 85.3 fl (85-98); Monocytes # 0.6 10^3/uL (0.2-0.9); Monocytes % 8.8 %; Neutrophils % 78.5 %; Nucleated Red Blood Cells % 0 %; Platelet Count 304 10^3/cmm (157-399); Red Cell Distribution Width 14.9 % (12.1-15.1); White Blood Count 7.26 10^3/uL (3.29-11.43)
[2024-11-08] MEDS: heparin 5,000 unit/mL INJ 1 mL 5000 UNIT SUBCUT ×2 (05:28→17:13)
[2024-11-08 05:30] LABS: Anion Gap 18.6 (5-19); Blood Urea Nitrogen 33 mg/dL (8-23); Calcium 7.9 mg/dL (8.5-10.5); Carbon Dioxide 20 mmol/L (22-29); Chloride 102 mmol/L (98-107); Creatinine Clr Calc Pharmacy 22.7087; Glucose 84 mg/dL (65-115); Osmolality Calculated 292 mOsm/kg (285-295); Sodium 138 mmol/L (136-145)
[2024-11-08 05:51] LABS: Potassium 2.6 mmol/L (3.5-5.1)
[2024-11-08] MEDS: potassium chloride ER 20 mEq Tablet 40 MEQ PO ×4 (06:19→23:16)
[2024-11-08] MEDS: sodium chloride 0.9% 1,000 ML 125 ML IV ×2 (06:23→14:46)
[2024-11-08] MEDS: ipratropium-albuterol 3 mL Neb INHALATION ×4 (08:36→20:08)
[2024-11-08] MEDS: magnesium oxide 400 mg tablet PO ×2 (09:35→17:12)
[2024-11-08] MEDS: docusate sodium 100 mg Capsule PO ×2 (09:35→17:12)
[2024-11-08] MEDS: magnesium sulfate premix 4 GM/100 ML PREMIX IV (09:36)
--- NOTE | 2024-11-08 10:28 | PC.CHAP ---
Pastoral Care Encounter/Spiritual Assessment Type of Contact [] Declined brand strategy manager visit [] Patient/Family/Request visit [] Outpatient visit [] Follow-up visit [] Physician referral [] Code/Alert [] Routine visit [] Staff referral [] Actively dying [] Patient sleeping [] Family support [] [] Out of room [] Palliative care [] [x] Receiving care in room [] Pre-surgical visit [] Trauma [] Long length of stay [] ICU visit [] Other: Relational/Emotional Strength [] Patient feels connected with others/family/visitors/staff [] Distress [] Loneliness/isolation [] Abandonment Spirituality of Patient [] Person of Roseann [] Attends Hindu of their Roseann [] Believes in Prayer [] Reads Bible or Episcopalian materials [] There are Spiritual issues to be addressed Forming Process Line Worker Interventions [] Prayer [] Active listening [] Non-anxious presence [] Spiritual/emotional support [] Crisis/trauma care [] Spiritual counseling [] Bereavement support [] Provided bereavement packet [] Provided Bible/devotional materials [] Provided toy/stuffed animal, coloring book to patient or family member [] Provided Communion [] Anointing/[place] [] Salvation [] Completed spiritual assessment [] Other: Impact on Illness or Injury [] Angry [] Fearful [] Anxious [] Often cries [] Exhaustion [] Unable to work [] Unable to attend sikhism [] Unable to walk/stand [] Unable to read [] Unable to drive [] Unable to eat/drink [] Unable to sleep [] Unable to be with family [] Patient intubated [] Other: Summary Time spent with patient Pastoral Care Encounter/Spiritual Assessment Type of Contact [] Declined brand strategy manager visit [] Patient/Family/Request visit [] Outpatient visit [] Follow-up visit [] Physician referral [] Code/Alert [] Routine visit [] Staff referral [] Actively dying [] Patient sleeping [] Family support [] [] Out of room [] Palliative care [] [] Receiving care in room [] Pre-surgical visit [] Trauma [] Long length of stay [] ICU visit [] Other: Relational/Emotional Strength [] Patient feels connected with others/family/visitors/staff [] Distress [] Loneliness/isolation [] Abandonment Spirituality of Patient [] Person of Roseann [] Attends Hindu of their Roseann [] Believes in Prayer [] Reads Bible or Episcopalian materials [] There are Spiritual issues to be addressed Forming Process Line Worker Interventions [] Prayer [] Active listening [] Non-anxious presence [] Spiritual/emotional support [] Crisis/trauma care [] Spiritual counseling [] Bereavement support [] Provided bereavement packet [] Provided Bible/devotional materials [] Provided toy/stuffed animal, coloring book to patient or family member [] Provided Communion [] Anointing/[place] [] Salvation [] Completed spiritual assessment [] Other: Impact on Illness or Injury [] Angry [] Fearful [] Anxious [] Often cries [] Exhaustion [] Unable to work [] Unable to attend sikhism [] Unable to walk/stand [] Unable to read [] Unable to drive [] Unable to eat/drink [] Unable to sleep [] Unable to be with family [] Patient intubated [] Other: Summary Time spent with patient
--- NOTE | 2024-11-08 12:23 | PC.PHAR ---
Waiting for a fax back from provider for Patients recent Medication list.
[2024-11-08 14:14] LABS: Staphylococcus epidermidis Detected (NOT DETECT)
[2024-11-08 14:15] LABS: mecA Detected (NOT DETECT)
--- NOTE | 2024-11-08 14:28 | P.PN_ITS ---
Subjective 2 Subjective: Patient asking to go home like she did in the ER yesterday. Daughter and in the room. Both agree she looks a lot better and is acting a lot better than previously. Patient denies complaints Vitals/I&O/Wt Last Vital Signs Temp 98.5 F 11/08/24 12:00 Pulse 89 11/08/24 12:00 Resp 16 11/08/24 12:00 BP 118/77 11/08/24 12:00 Pulse Ox 94 11/08/24 12:00 O2 Del Method Room Air 11/08/24 12:00 11/07/24 11/08/24 11/08/24 22:59 06:59 14:59 Intake Total 1742.85 / 1742.85 1187.917 / 2930.767 460 / 460 Balance 1742.85 / 1742.85 1187.917 / 2930.767 460 / 460 Weight last 48 hrs Weight 77.474 kg Weight 76.793 kg Weight 81.647 kg Physical Exam 2 Narrative: Heart less tachycardic today, no loud murmurs Lungs diminished in the right lower lung field otherwise clear improved aeration in that right lower lung field than yesterday Abdomen soft nontender nondistended positive bowel sounds no hepatosplenomegaly Extremities no clubbing cyanosis or edema Data 11/08/24 05:01 11/08/24 05:01 Micro: Microbiology 11/07/24 17:20 Blood Culture - Preliminary Blood Staphylococcus epidermidis 11/07/24 17:19 Blood Culture - Preliminary Blood SPECIMEN COLLECTED A&P Assessment and plan (1) Right lower lobe pneumonia: Continue Rocephin azithromycin -as patient has shown improvement with WBC and clinically. Nebs as needed Oxygen 2 L and titrate for O2 sat greater than 92% (2) BRENT (acute kidney injury): Last BUN/creatinine done in 2019 which were normal. Today she is 36/2.0. BUN/creatinine remain elevated at 33/2.0 hydration has not improved her condition this may be her baseline. Will decrease fluids today as she is eating and drinking appropriately (3) Chronic diastolic CHF (congestive heart failure): Will hydrate overnight being aware of history of CHF Stop fluids today due to this underlying condition (4) COPD (chronic obstructive pulmonary disease): Patient with cough while I was at bedside that this was nonproductive I do not see that she takes any inhalers for this disease (5) Diabetes mellitus type 2 in obese: Hold metformin and will use sliding scale if indicated (6) CAD (coronary artery disease): (7) HTN (hypertension): Home medications held yesterday Normal BP off all meds Will reinstitute as required (8) Dementia: Discussed with family that may patient's dementia may worsen in the form of delirium due to being hospitalized No delirium in the hospital thus far (9) DNR (do not resuscitate) discussion: states they do not have a living will regarding their health care. While initially they said I want everything done. When I explained a catastrophic event of not being able to breathe and requiring the ventilator as well as no heartbeat requiring CPR and heart shocking they agreed with DO NOT RESUSCITATE or in this hospital allow natural . (10) Hypokalemia: Overnight physician has ordered 120 mill equivalents over today. Will reassess tomorrow. Plan Continue hospitalization for another 24 hours for antibiotics. Plan to reassess tomorrow. Also need to reassess for hypokalemia. PDMP PDMP Reviewed: Not Reviewed Attestations 2 Medical Necessity Statement*: Patient with altered mental status and a new pneumonia will require IV antibiotics oxygen nebulizers and continuous monitoring she will require greater than 2 midnight stay for this condition Coding Level of Care Code Acute Code for [facility] Diagnoses Right lower lobe pneumonia J18.9 Pneumonia type: due to unspecified organism BRENT (acute kidney injury) N17.9 Chronic diastolic CHF (congestive heart failure) I50.32 Chronic obstructive pulmonary disease, unspecified COPD type J44.9 COPD type: unspecified COPD Diabetes mellitus type 2 in obese E11.69; E66.9 Coronary artery disease involving [place] coronary artery of [place] heart, angina presence unspecified I25.10 Coronary Disease-Associated Artery/Lesion type: [place] artery [place] vs. transplanted heart: [place] heart Associated angina: angina presence unspecified Essential hypertension I10 Hypertension type: essential hypertension Moderate dementia without behavioral disturbance, psychotic disturbance, mood disturbance, or anxiety, unspecified dementia type F03.B0 Dementia type: unspecified type Dementia severity: moderate Dementia behavioral or psychological symptom: without behavioral, psychotic, or mood disturbance or anxiety DNR (do not resuscitate) discussion Z71.89 Hypokalemia E87.6
[2024-11-08] MEDS: acetaminophen 325 mg Tablet 650 MG PO (14:45)
--- NOTE | 2024-11-08 16:40 | PC.PHAR ---
I spoke with [facility] And filled out patients Med list With fill dates from them . I faxed The provider but still haven't received a fax back .
[2024-11-08 17:11] LABS: Glucose Point of Care 273 mg/dL (70-110)
[2024-11-08] MEDS: cefTRIAXone 1,000 mg SDV 1000 MG IVP (17:11)
[2024-11-08] MEDS: AZITHROMYCIN ADD-Vantage 500 MG in 0.9% NaCl ADD-Vantage 250 ML 250 MG IV (17:14)
[2024-11-08] MEDS: insulin lispro 100 unit/1 mL SUBCUT (17:22)
[2024-11-08 20:46] LABS: Glucose Point of Care 132 mg/dL (70-110)
[2024-11-08] MEDS: gabapentin 100 mg Capsule PO (21:01)
[2024-11-08] MEDS: metoprolol tartrate 25 mg Tablet PO (22:01)
[2024-11-08] MEDS: metoprolol tartrate 1 mg/1 mL SDV 5 mL 5 MG IVP (22:01)
[2024-11-08 22:32] LABS: Alanine Aminotransferase 32 U/L (0-33); Albumin Level 2.7 g/dL (3.5-5.2); Alkaline Phosphatase 85 U/L (35-105); Anion Gap 14.8 (5-19); Aspartate Amino Transferase 45 U/L (0-32); Blood Urea Nitrogen 26 mg/dL (8-23); Carbon Dioxide 19 mmol/L (22-29); Chloride 106 mmol/L (98-107); Creatinine Clr Calc Pharmacy 25.2318; Globulin 3.3 g/dL (1.3-4.6); Glucose 102 mg/dL (65-115); Osmolality Calculated 287 mOsm/kg (285-295); Potassium 3.8 mmol/L (3.5-5.1); Sodium 136 mmol/L (136-145); Total Bilirubin 0.2 mg/dL (0.15-1.2)
--- NOTE | 2024-11-08 22:53 | ECG_ITS ---
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 Measurements Intervals [place] Rate: 90 P: 0 MI: 0 QRS: -35 QRSD: 118 T: 21 QT: 356 QTc: 438 Interpretive Statements Normal Sinus RHYTHM LEFT AXIS DEVIATION [QRS AXIS < -30] ANTEROSEPTAL MYOCARDIAL INFARCTION , OF INDETERMINATE AGE [40+ ms Q WAVE IN V1-V4] Compared to ECG 09/13/2019 22:11:28 Supraventricular rhythm now present Sinus rhythm no longer present Intraventricular conduction delay no longer present Myocardial infarct finding still present Electronically Signed On 11-09-2024 22:17:23 CDT by Amada Traore M.D. [email or web address]
[2024-11-08 22:57] LABS: Magnesium 2.7 mg/dL (1.7-2.3)
[2024-11-08 23:14] LABS: Troponin T (5th) Once 38 ng/L (0-10)
[2024-11-08] MEDS: lactated ringers 1,000 ML 999 ML IV (23:16)
[2024-11-09] VITALS (11 sets, daily range): BP systolic 132–150; BP diastolic 72–86; PULSE 72–104; RESP 16–22; TEMP 36.4–36.7; O2SAT 92–96
[2024-11-09] MEDS: acetaminophen 325 mg Tablet 650 MG PO ×2 (00:32→10:56)
[2024-11-09] MEDS: ipratropium-albuterol 3 mL Neb INHALATION ×2 (03:59→08:19)
[2024-11-09] MEDS: heparin 5,000 unit/mL INJ 1 mL 5000 UNIT SUBCUT (05:05)
[2024-11-09 05:44] LABS: Basophils % 0.6 %; Eosinophils # 0.1 10^3/uL (0.0-0.8); Eosinophils % 1.8 %; Hematocrit 28.9 % (36-47); Lymphocytes # 1.1 10^3/uL (0.8-4.8); Lymphocytes % 15.8 %; Mean Corpuscular HGB Conc 30.4 g/dL (30-55); Mean Corpuscular Hemoglobin 25.7 pg (27-33); Mean Corpuscular Volume 84.3 fl (85-98); Mean Platelet Volume 8.9 fL (7.4-10.4); Monocytes # 0.7 10^3/uL (0.2-0.9); Monocytes % 10.3 %; Neutrophils # 4.78 10^3/uL (1.8-7.7); Neutrophils % 70.9 %; Nucleated Red Blood Cells % 0 %; Platelet Count 347 10^3/cmm (157-399); Red Blood Count 3.43 10^6/uL (3.85-5.65); Red Cell Distribution Width 15.3 % (12.1-15.1); White Blood Count 6.73 10^3/uL (3.29-11.43)
--- NOTE | 2024-11-09 06:01 | PC.NURSE ---
Mag not given due to high mag level 2.7 Patient received 4mg during dayshift 11/08/24 doctor notified
[2024-11-09 06:09] LABS: Anion Gap 13.8 (5-19); Blood Urea Nitrogen 22 mg/dL (8-23); Carbon Dioxide 21 mmol/L (22-29); Chloride 107 mmol/L (98-107); Glucose 109 mg/dL (65-115); Osmolality Calculated 288 mOsm/kg (285-295); Potassium 4.8 mmol/L (3.5-5.1); Sodium 137 mmol/L (136-145)
[2024-11-09 06:20] LABS: Glucose Point of Care 118 mg/dL (70-110)
[2024-11-09] MEDS: buPROPion HCL 75 MG TABLET PO (08:25)
[2024-11-09] MEDS: docusate sodium 100 mg Capsule PO (08:25)
[2024-11-09] MEDS: magnesium oxide 400 mg tablet PO (08:25)
[2024-11-09] MEDS: escitalopram 10 mg Tablet PO (08:25)
--- NOTE | 2024-11-09 09:44 | PC.CHAP ---
Pastoral Care Encounter/Spiritual Assessment Type of Contact [] Declined orthopedic shoe maker visit [] Patient/Family/Request visit [] Outpatient visit [] Follow-up visit [] Physician referral [] Code/Alert [x] Routine visit [] Staff referral [] Actively dying [] Patient sleeping [] Family support [] [] Out of room [] Palliative care [] [] Receiving care in room [] Pre-surgical visit [] Trauma [] Long length of stay [] ICU visit [] Other: Relational/Emotional Strength [x] Patient feels connected with others/family/visitors/staff [x] Distress [] Loneliness/isolation [] Abandonment Spirituality of Patient [x] Person of Roseann [] Attends Jewish of their Roseann [x] Believes in Prayer [] Reads Bible or Denominational materials [] There are Spiritual issues to be addressed Logistics Solution Manager Interventions [x] Prayer [x] Active listening [x] Non-anxious presence [x] Spiritual/emotional support [] Crisis/trauma care [] Spiritual counseling [] Bereavement support [] Provided bereavement packet [] Provided Bible/devotional materials [] Provided toy/stuffed animal, coloring book to patient or family member [] Provided Communion [] Anointing/[place] [] Salvation [x] Completed spiritual assessment [] Other: Impact on Illness or Injury [] Angry [] Fearful [x] Anxious [] Often cries [] Exhaustion [] Unable to work [] Unable to attend christian [] Unable to walk/stand [] Unable to read [] Unable to drive [] Unable to eat/drink [] Unable to sleep [] Unable to be with family [] Patient intubated [] Other: Summary Time spent with patient 10 min
--- NOTE | 2024-11-09 10:28 | PC.SOCIAL ---
IMM Updated Updated pt on IMM. No questions voiced. Provided pt a copy. Initialed, dated, & timed a copy & placed in chart.
--- NOTE | 2024-11-09 10:48 | P.DS_ITS ---
Discharge Providers Date of Admission: 11/07/24 17:10 Date of Discharge: November 09, 2024 Attending Provider at Admission: Antione Summers DO Attending Provider at Discharge: Antione Summers DO Consults: None Primary Care Provider: Jake Kilpatrick DO Diagnoses at Discharge Discharge Diagnosis (1) Right lower lobe pneumonia: Status: Acute Qualifiers: Pneumonia type: due to unspecified organism Qualified Code(s): J18.9 - Pneumonia, unspecified organism (2) BRENT (acute kidney injury): Status: Acute (3) Chronic diastolic CHF (congestive heart failure): Status: Acute Permanent problem details: -has known hx of chronic diastolic CHF, no acute exacerbation currently -Echo (2017): EF=60%, G1DD; repeat ordered given hypertensive urgency and NSTEMI (4) COPD (chronic obstructive pulmonary disease): Status: Chronic Qualifiers: COPD type: unspecified COPD Qualified Code(s): J44.9 - Chronic obstructive pulmonary disease, unspecified Permanent problem details: -has documented hx of COPD, prior smoker, not oxygen dependent -no evidence of acute exacerbation currently -supplemental oxygen as needed -continue to monitor respiratory status (5) Diabetes mellitus type 2 in obese: Status: Chronic Permanent problem details: -has hx of NIDDM type II -hypoglycemia precautions, accuchecks, ISS -A1c at goal-7.1 -noted urine ketones, significant hyperglycemia, increased anion gap though I suspect dehydration to be more of an element here than DKA (6) CAD (coronary artery disease): Status: Chronic Qualifiers: Coronary Disease-Associated Artery/Lesion type: [place] artery [place] vs. transplanted heart: [place] heart Associated angina: angina presence unspecified Qualified Code(s): I25.10 - Atherosclerotic heart disease of [place] coronary artery without angina pectoris Permanent problem details: -has prior hx of CAD with stenting of LAD done in 03/2007 -had previously followed up with cardiology (7) HTN (hypertension): Status: Chronic Qualifiers: Hypertension type: essential hypertension Qualified Code(s): I10 - Essential (primary) hypertension (8) Dementia: Status: Chronic Qualifiers: Dementia type: unspecified type Dementia severity: moderate Dementia behavioral or psychological symptom: without behavioral, psychotic, or mood disturbance or anxiety Qualified Code(s): F03.B0 - Unspecified dementia, moderate, without behavioral disturbance, psychotic disturbance, mood disturbance, and anxiety (9) DNR (do not resuscitate) discussion: Status: Acute (10) Hypokalemia: Status: Acute Reason for Visit Reason for Visit: difficult walking,talking,moving, ams Brief History: Patient with altered mental status at home. Found to have pneumonia to explain delirium on top of underlying dementia. Admitted for IV antibiotic Hospital Course Hospital Course Patient had mild acute kidney injury and was given fluids. She was given IV antibiotics. She started to feel better the following day we continued IV antibiotics for another 24 hours. Her potassium was low and needed replacement yesterday. Her potassium has normalized today. She is discharged in stable and improved condition to home with her and daughter living with her Physical Exam Narrative: Heart regular rate and rhythm, no loud murmurs Lungs improved aeration. Still with a few rhonchi in the right base: However much better every day Abdomen soft nontender nondistended positive bowel sounds no hepatosplenomegaly Extremities no clubbing cyanosis or edema Discharge Data Studies Completed and Pending Completed Studies During Hospitalization Category Date Time Status CT head wo con* [id number] Stat Cat Scan 11/07/24 16:20 Completed XR chest 1V portable [id number] Urgent Exams 11/07/24 16:06 Completed Pending at discharge Category Date Time Status Basic Metabolic Panel AM LABS Lab 11/10/24 04:00 Ordered Blood Culture Stat Lab 11/07/24 17:20 Results Radiology Impressions Chest X-Ray 11/07/24 16:06 IMPRESSION: New airspace disease in the right lower lung zone. Suspicious for pneumonia. Underlying mass can not be excluded. Short-term radiographic follow-up is recommended to assess resolution. Head CT 11/07/24 16:20 IMPRESSION: 1. Cerebral atrophy and chronic cerebral microvascular disease. 2. No evidence of acute intracranial process. Laboratory Results WBC 6.73 10^3/uL (3.29-11.43) 11/09/24 05:29 RBC 3.43 10^6/uL (3.85-5.65) L 11/09/24 05:29 Hgb 8.80 g/dL (11.27-16.99) L 11/09/24 05:29 Hct 28.9 % (36-47) L 11/09/24 05:29 MCV 84.3 fl (85-98) L 11/09/24 05:29 MCH 25.7 pg (27-33) L 11/09/24 05: MCHC 30.4 g/dL (30-55) 11/09/24 05:29 RDW 15.3 % (12.1-15.1) H 11/09/24 05:29 Plt Count 347 10^3/cmm (157-399) 11/09/24 05:29 MPV 8.9 fL (7.4-10.4) 11/09/24 05:29 Neut % (Auto) 70.9 % 11/09/24 05:29 Lymph % (Auto) 15.8 % 11/09/24 05:29 Bartholomew % (Auto) 10.3 % 11/09/24 05:29 Eos % (Auto) 1.8 % 11/09/24 05:29 Baso % (Auto) 0.6 % 11/09/24 05:29 Neut # (Auto) 4.78 10^3/uL (1.8-7.7) 11/09/24 05:29 Lymph # (Auto) 1.1 10^3/uL (0.8-4.8) 11/09/24 05:29 Bartholomew # (Auto) 0.7 10^3/uL (0.2-0.9) 11/09/24 05:29 Eos # (Auto) 0.1 10^3/uL (0.0-0.8) 11/09/24 05:29 Baso # (Auto) 0.0 10^3/uL (0.0-0.1) 11/09/24 05:29 Nucleated RBC % (auto) 0 % 11/09/24 05:29 Nucleated RBCs # 0.0 /100WBC 11/09/24 05:29 Sodium 137 mmol/L (136-145) 11/09/24 05:29 Potassium 4.8 mmol/L (3.5-5.1) 11/09/24 05:29 Chloride 107 mmol/L (98-107) 11/09/24 05:29 Carbon Dioxide 21 mmol/L (22-29) L 11/09/24 05:29 Anion Gap 13.8 (5-19) 11/09/24 05:29 BUN 22 mg/dL (8-23) 11/09/24 05:29 Creatinine 1.8 mg/dL (0.5-0.9) H 11/09/24 05:29 GFR Calculation Not Reportable 11/09/24 05:29 Glucose 109 mg/dL (65-115) 11/09/24 05:29 POC Glucose 118 mg/dL (70-110) H 11/09/24 06:18 Calculated Osmolality 288 mOsm/kg (285-295) 11/09/24 05:29 Lactic Acid 1.4 mmol/L (0.5-2.2) 11/07/24 16:28 Calcium 8.0 mg/dL (8.5-10.5) L 11/09/24 05:29 Magnesium 2.7 mg/dL (1.7-2.3) H 11/08/24 22:08 Total Bilirubin 0.2 mg/dL (0.15-1.2) 11/08/24 22:08 AST 45 U/L (0-32) H 11/08/24 22:08 ALT 32 U/L (0-33) 11/08/24 22:08 Alkaline Phosphatase 85 U/L (35-105) 11/08/24 22:08 Troponin T 5th Gen ng/L 38 ng/L (0-10) H 11/08/24 22:08 Total Protein 6.0 g/dL (6.6-8.7) L 11/08/24 22:08 Albumin 2.7 g/dL (3.5-5.2) L 11/08/24 22:08 Globulin 3.3 g/dL (1.3-4.6) 11/08/24 22:08 Procalcitonin 0.49 ng/mL (0-0.5) 11/07/24 16:28 Urine Color Yellow (Yellow) 11/07/24 16:30 Urine Appearance Clear (CLEAR) 11/07/24 16:30 Urine pH 5.5 (5-7) 11/07/24 16:30 Ur Specific [place] 1.014 (1.005-1.030) 11/07/24 16:30 Urine Protein 3+ (Negative) A 11/07/24 16:30 Urine Glucose (UA) Negative (Normal) 11/07/24 16:30 Urine Ketones Trace (Negative) 11/07/24 16:30 Urine Blood Trace (Negative) A 11/07/24 16:30 Urine Nitrate Negative (Negative) 11/07/24 16:30 Urine Bilirubin Negative (Negative) 11/07/24 16:30 Urine Urobilinogen 1.0 mg/dL (Negative) 11/07/24 16:30 Ur Leukocyte Esterase Negative (Negative) 11/07/24 16:30 Urine RBC 3-5 /hpf (0-2) 11/07/24 16:30 Urine WBC 0-5 /hpf (0-5) 11/07/24 16:30 Ur Squamous Epith Cells 0-5 /hpf (0-5) 11/07/24 16:30 Ur Transition Epith Cell 5-10 /hpf 11/07/24 16:30 Ur Renal Epithelial Cell 0-4 /hpf 11/07/24 16:30 Amorphous Sediment 1+ /hpf 11/07/24 16:30 Urine Bacteria None seen /hpf (NONE) 11/07/24 16:30 Hyaline Casts 6.61 /lpf 11/07/24 16:30 Fine Granular Casts 5-10 /lpf H 11/07/24 16:30 Vitals Last Vital Signs Temp 97.7 F 11/09/24 04:22 Pulse 85 11/09/24 08:27 Resp 16 11/09/24 08:19 BP 148/72 11/09/24 04:22 Pulse Ox 95 11/09/24 08:19 O2 Del Method Room Air 11/09/24 08:19 Discharge Plan Discharge Patient Disposition: Home Condition: Stable Prescriptions: New albuterol sulfate [Ventolin HFA] 90 mcg/actuation HFA aerosol inhaler 2 inh inhalation Q6H Qty: 8.5 0RF Rx Instructions: 2 inhalations four times a day while on antibiotics. Then use as needed for shortness of breath or wheezing and/or cough azithromycin [Zithromax] 500 mg tablet 500 mg PO DAILY 5 Days Qty: 5 0RF cefdinir 300 mg capsule 300 mg PO BID 10 Days Qty: 20 0RF Continued bupropion HCl 75 mg tablet 75 mg PO DAILY gabapentin 100 mg tablet 100 mg PO BEDTIME hydrochlorothiazide 25 mg tablet 25 mg PO DAILY Qty: 90 3RF metformin 1,000 mg Tablet 1,000 mg PO BID Trulicity 0.75 mg/0.5 mL pen injector 0.75 mg SUBCUT Q7D escitalopram oxalate 10 mg tablet 75 mg PO DAILY omeprazole 40 mg capsule,delayed release(DR/EC) 40 mg PO DAILY meclizine 25 mg tablet 25 mg PO Q8H PRN (Reason: Dizziness Or Vertigo) insulin glargine [Lantus Solostar U-100 Insulin] 100 unit/mL (3 mL) insulin pen 40 unit SUBCUT QAM metoprolol tartrate 25 mg tablet 25 mg PO BID No Action losartan 25 mg tablet 25 mg PO DAILY Discharge Orders: Discharge Order (Routine); Ordered 11/09/24 Ordered By: Antione Summers Referrals: Jake Kilpatrick DO [Primary Care Provider, Internal Medicine] Discharge Diet: Diabetic Discharge Activity: Increase activity as tolerated Discharge Attestations Time Spent in Discharge Care*: less than 30 min Status at Discharge: Cognitive status at discharge: cognitively intact , Behavioral status at discharge: cooperative , Quality Metrics Clinical Quality Measures [ No reported AMI, CVA or VTE this stay] Coding Level of Care Code Acute Code for Chg Fwd Diagnoses Right lower lobe pneumonia J18.9 Pneumonia type: due to unspecified organism BRENT (acute kidney injury) N17.9 Chronic diastolic CHF (congestive heart failure) I50.32 Chronic obstructive pulmonary disease, unspecified COPD type J44.9 COPD type: unspecified COPD Diabetes mellitus type 2 in obese E11.69; E66.9 Coronary artery disease involving [place] coronary artery of [place] heart, angina presence unspecified I25.10 Coronary Disease-Associated Artery/Lesion type: [place] artery [place] vs. transplanted heart: [place] heart Associated angina: angina presence unspecified Essential hypertension I10 Hypertension type: essential hypertension Moderate dementia without behavioral disturbance, psychotic disturbance, mood disturbance, or anxiety, unspecified dementia type F03.B0 Dementia type: unspecified type Dementia severity: moderate Dementia behavioral or psychological symptom: without behavioral, psychotic, or mood disturbance or anxiety DNR (do not resuscitate) discussion Z71.89 Hypokalemia E87.6
[2024-11-09 11:28] LABS: Glucose Point of Care 170 mg/dL (70-110)
--- NOTE | 2024-11-09 11:29 | PC.NURSE ---
Patient's Cefdinir was verbally called into [facility]'s main campus.
--- NOTE | 2024-11-09 11:44 | PC.NURSE ---
Delay in d/c due to error with prescriptions going through.
== END 2024-11-09 11:46 | disposition home or self-care (01) | DRG 194 ==
LOC: ER 17:22 → MEDSURG 17:35
PROVIDERS: Internal Medicine; Admitting Provider Internal Medicine; Emergency Provider Physician Assistant; PCP Internal Medicine; Visit Provider Internal Medicine
DX: J18.9 Pneumonia, unspecified organism (principal); I13.0 Hypertensive heart and chronic kidney disease with heart failure and stage 1 through stage 4 chronic kidney disease, or unspecified chronic kidney disease; I50.32 Chronic diastolic (congestive) heart failure; J44.0 Chronic obstructive pulmonary disease with (acute) lower respiratory infection; N17.9 Acute kidney failure, unspecified; E11.9 Type 2 diabetes mellitus without complications; E66.9 Obesity, unspecified; Z68.33 Body mass index [BMI] 33.0-33.9, adult; I25.10 Atherosclerotic heart disease of native coronary artery without angina pectoris; F03.B0 Unspecified dementia, moderate, without behavioral disturbance, psychotic disturbance, mood disturbance, and anxiety; Z66 Do not resuscitate; E87.6 Hypokalemia; N18.2 Chronic kidney disease, stage 2 (mild); E78.5 Hyperlipidemia, unspecified; Z87.891 Personal history of nicotine dependence; Z95.5 Presence of coronary angioplasty implant and graft; Z79.84 Long term (current) use of oral hypoglycemic drugs; Z79.02 Long term (current) use of antithrombotics/antiplatelets
CPT/HCPCS: 36415; 36416; 70450; 71045; 80048; 80053; 81001; 82962; 83605; 83735; 84145; 84484; 85025; 87040; 87077; 87150; 87186; 87205; 93005; 94640; 96365; 96372; 96375; 99285; J0456; J0696; J1644; J1815; J3475; J3490; J7030; J7050; J7120; J9999